=== PATIENT | female | born 1950 | race Caucasian/White ===

== ENCOUNTER 2025-01-14 05:08 | Emergency (ER) | payer MEDICARE, BC, SELFPAY ==
[2025-01-14 05:12] VITALS: BP 122/85; PULSE 74; RESP 18; TEMP 36.9; O2SAT 96; BMI 39.4
--- NOTE | 2025-01-14 05:33 | ED.GENADULT ---
HPI - General Adult General Chief complaint: Nausea/Vomiting Stated complaint: Ill Time Seen by Provider: 01/14/25 05:09 Source: patient and EMS Mode of arrival: EMS Limitations: no limitations History of Present Illness HPI narrative: 74-year-old female presents to the emergency department after calling 911 because she felt hot and nauseated suddenly upon awakening. No neurological changes, no chest pain, no shortness of breath. No fever. Had been eating and drinking normally through the day. Did not try taking any Tylenol or ibuprofen to help with her symptoms. No abdominal pain. No extremity pain, no myalgias. Currently asymptomatic besides the nausea. No vomiting. No recent bloody stools. No dysuria, no recent medication changes. Does have a prior history of TIA and is anticoagulated on Coumadin. No bleeding, no falls or trauma. No recent sick contacts or pertinent travel. Denies alcohol intake. Past medical history per patient is notable for anxiety disorder, chronic insomnia, history of TIA. Home meds are reviewed, denies any recent changes. No narcotics. Does have several mood medications and sedatives on her list. Nonsmoker. Denies recent surgery. Abdominal surgical history is notable for prior hysterectomy and appendectomy. Denies others. ROS is notable for the generalized abdominal symptoms only, otherwise denies times 12 systems. Related Data Home Medications ?Medication ?Instructions ?Recorded ?Confirmed atorvastatin 40 mg tablet 40 mg PO DAILY 01/14/25 01/14/25 buprenorphine 2 mg-naloxone 0.5 mg 1 tab sublingual TID 01/14/25 01/14/25 sublingual tablet citalopram 40 mg tablet 40 mg PO DAILY 01/14/25 01/14/25 levothyroxine 150 mcg tablet 150 mcg PO DAILY 01/14/25 01/14/25 oxycodone 5 mg tablet 5 mg PO TID 01/14/25 01/14/25 trazodone 50 mg tablet 50 mg PO QPM 01/14/25 01/14/25 warfarin 5 mg tablet 5 mg PO DIRECTED 01/14/25 01/14/25 Allergies Allergy/AdvReac Type Severity Reaction Status Date / Time No Known Drug Allergies Allergy Verified 01/14/25 05:15 [facility] Medical History (Updated 01/14/25 @ 06:42 by Yisel Talbert MD) Pain management contract agreement ?Z02.89 - Encounter for other administrative examinations (ICD-10) Anticoagulation monitoring, INR range 2-3 ?Z79.01 - senior care (current) use of anticoagulants (ICD-10) PFO (patent foramen ovale) ?Q21.12 - Patent foramen ovale (ICD-10) Ischemic embolic stroke ?I63.9 - Cerebral infarction, unspecified (ICD-10) Presbyopia ?H52.4 - Presbyopia (ICD-10) Pseudophakia ?Z96.1 - Presence of intraocular lens (ICD-10) Morbid obesity ?E66.01 - Morbid (severe) obesity due to excess calories (ICD-10) CKD (chronic kidney disease) ?N18.9 - Chronic kidney disease, unspecified (ICD-10) Acquired hypothyroidism ?E03.9 - Hypothyroidism, unspecified (ICD-10) Major psychotic depression, recurrent ?F33.3 - Major depressive disorder, recurrent, severe with psychotic symptoms (ICD-10) Surgical History (Updated 01/14/25 @ 06:05 by Edvin Farley RN) S/P TEQUILA (total abdominal hysterectomy) ?Z90.710 - Acquired absence of both cervix and uterus (ICD-10) S/P lumbar spinal fusion ?Z98.1 - Arthrodesis status (ICD-10) History of cholecystectomy ?Z90.49 - Acquired absence of other specified parts of digestive tract (ICD-10) H/O colonoscopy ?Z98.890 - Other specified postprocedural states (ICD-10) Cataract extraction status of eye ?Z98.49 - Cataract extraction status, unspecified eye (ICD-10) H/O arthroplasty ?Z96.60 - Presence of unspecified orthopedic joint implant (ICD-10) History of appendectomy ?Z90.49 - Acquired absence of other specified parts of digestive tract (ICD-10) Social History Smoking Status: Former smoker Second hand tobacco smoke exposure: No How often do you have a drink containing alcohol: never AUDIT-C Alcohol total score: 0 Non-prescribed substance use: denies use Exam Const: Vital Signs, click to edit/add: Vital Signs - 24 hr 01/14/25 05:12 01/14/25 06:06 Temperature 98.5 F Pulse Rate [Right Pulse Oximeter] 74 Respiratory Rate 18 Blood Pressure [Ri ght Upper Arm] 122/85 Pulse Oximetry 96 96 Oxygen Delivery Me thod Room Air Documenting provider has reviewed patient's vital signs: yes Common normals: alert Other: Moderate historian. Difficulty staying on task with question answering. Appears well nourished and well hydrated. HENMT: Common normals: normocephalic, moist oral mucous membranes and oropharynx normal Head and scalp: normocephalic Mouth: oral and palatal mucosa normal Throat: posterior oropharynx normal Eye: Common normals: conjunctivae normal General eye: normal appearance of both eyes Conjunctiva: conjunctiva(e) normal Neck & C-Spine: Common normals: full ROM and no lymphadenopathy General: normal visual inspection Resp: Common normals: normal respiratory effort and no use of accessory muscles Effort & inspection: able to speak in complete sentences Cardio: Common normals: regular rate, regular rhythm, S1 normal heart sound, S2 normal heart sound and no murmurs Rate: regular rate Rhythm: regular rhythm Heart sounds: S1 normal and S2 normal GI: Common normals: Normal to inspection, nondistended, normoactive bowel sounds present, soft to palpation, no hepatosplenomegaly and no masses Palpation: soft and no hepatosplenomegaly Other: Mild tenderness to epigastric region and right upper quadrant only. Right upper quadrant pain was not reproducible. Certainly no rebound tenderness or guarding : Common normals: no CVA tenderness Bladder/kidney exam: no CVA tenderness Back & Pelvis: Common normals: no CVA tenderness Extremity: Common normals: normal capillary refill Neuro: Common normals: moves all extremities and no focal motor deficits Sensorium/orientation: alert Speech: speech normal Other: Pulse self up from supine to sitting quickly without difficulty. Psych: Appearance: grossly normal Activity/motor behavior: appropriate eye contact Insight: fair Judgement: fair Skin: Common normals: no rashes or lesions noted General skin exam: no rashes or lesions noted Course Course ED Course: 74-year-old female with nausea and a hot flash. No signs of obvious sepsis, tachycardia, hypotension. She is has no vomiting or focal exam findings that her overly worrisome. Recommended viral swabs, baseline labs. Will withhold any imaging unless labs are suspicious. Bolus 1/2 L of normal saline and 4 mg of Zofran. Await findings. Reevaluation(s) Time of Reevaluation #1: 06:43 Reevaluation #1: Reviewed findings with patient, labs are very reassuring. She is feeling better after the Zofran and fluids. She disclosed to the nurses but denies to me that she has been taking both oxycodone and her Suboxone and it sounds as though she has been tapered down on the oxycodone and potentially missed some doses of her Suboxone. I do question narcotic withdrawal as the source of her symptoms seeing as her INR is also low. Patient denies that this could be a factor in front of her family that has freshly arrived. Overall, things look good and I have no indications to keep her in the ED or pursue more advanced imaging. I reiterated to the patient the importance of taking her medications as prescribed and she nods in agreement. I offered some Zofran to have at home and she says that she has a good supply at home and should not need more. I tell her that this sounds reasonable. Let her know that if she has identical episodes to this in the future, it is okay to try Tylenol and Zofran and see if symptoms improve within an hour. She verbalizes understanding and agreement. Written instructions provided, all questions answered. Vital Signs Vital signs: Initial Vital Signs Temperature 98.5 F 01/14/25 05:12 Temperature Source Temporal Artery Scan 01/14/25 05:12 Pulse Rate 74 01/14/25 05:12 Respiratory Rate 18 01/14/25 05:12 Blood Pressure 122/85 01/14/25 05:12 Blood Pressure Mean 97 01/14/25 05:12 Blood Pressure Position Sitting 01/14/25 05:12 Pulse Oximetry 96 01/14/25 05:12 Oxygen Delivery Method Room Air 01/14/25 05:12 Vital Signs Temperature 98.5 F 01/14/25 05:12 Pulse Rate 74 01/14/25 05:12 Respiratory Rate 18 01/14/25 05:12 Blood Pressure 122/85 01/14/25 05:12 Pulse Oximetry 96 01/14/25 05:12 Oxygen Delivery Method Room Air 01/14/25 05:12 Temperature 98.5 F 01/14/25 05:12 Pulse Rate 74 01/14/25 05:12 Respiratory Rate 18 01/14/25 05:12 Blood Pressure 122/85 01/14/25 05:12 Pulse Oximetry 96 01/14/25 06:06 Oxygen Delivery Method Room Air 01/14/25 05:12 Medications Administered Medications: Discontinued Medications Generic Name Dose Route Start Last Admin Trade Name Yash PRN Reason Stop Dose Admin Sodium Chloride 500 mls @ 500 mls/hr 01/14/25 05:28 01/14/25 06:39 0.9 % Sodium Chloride 500 Ml IV 01/14/25 06:27 Infused .Q1H ONE Infusion Ondansetron HCl 4 mg 01/14/25 05:28 01/14/25 05:50 Ondansetron 2 Mg/Ml Inj IVP 01/14/25 05:29 4 mg ONCE ONE Administration Medical Decision Making Lab Data Lab results reviewed: Yes I reviewed the patient's lab results Lab results narrative: No signs of infection. Hemoglobin stable. INR subtherapeutic which does make me think that she is not taking her medications appropriately. Electrolytes and kidney function appropriate. Negative viral studies. Overall reassuring. Labs: Lab Results 01/14/25 01/14/25 Range/Units 05:24 05:40 WBC 5.38 (4.50-11.00) K/uL RBC 4.19 (4.00-5.20) m/uL Hgb 11.8 L (12.0-16.0) gm/dL Hct 37.2 (33.0-51.0) % MCV 89 (80-100) fL MCH 28 (26-34) pg MCHC 32 (32-36) gm/dL RDW Coeff of Nigel 15.6 H (11.5-15.5) % Plt Count 154 (140-440) K/uL Neut % (Auto) 73.9 H (42.0-72.0) % Lymph % (Auto) 15.4 L (20-44) % Sampson % (Auto) 7.8 (0.0-11.0) % Eos % (Auto) 2.0 (0.0-7.0) % Baso % (Auto) 0.7 (0.0-3.0) % Neut # (Auto) 4.00 (1.7-7.0) K/uL Lymph # (Auto) 0.80 L (0.90-2.90) K/uL Sampson # (Auto) 0.40 (0.00-0.90) K/UL Eos # (Auto) 0.11 (0.00-0.50) K/uL Baso # (Auto) 0.04 (0.00-0.30) K/uL Abs Immat Gran (auto) 0.01 (0.00-0.30) K/uL Imm/Tot Granulo (auto) 0.2 % INR 1.40 H (0.91-1.10) Sodium 138 (135-149) mmol/L Potassium 3.7 (3.6-5.1) mmol/L Chloride 106 (96-114) mmol/L Carbon Dioxide 27 (20-32) mmol/L Anion Gap 5 L (7-15) mEq/L BUN 18 (7-30) mg/dL Creatinine 0.9 (0.5-1.5) mg/dL Estimated Creat Clear 40.21 Estimated GFR 67 ml/min Glucose 93 (60-115) mg/dL Lactate 1.1 (0.5-1.9) mmol/L Calcium 9.4 (8.4-10.6) mg/dL Total Bilirubin 0.6 (0.1-1.5) mg/dL AST 20 (12-35) U/L ALT 12 (4-35) U/L Alkaline Phosphatase 97 (40-150) U/L C-Reactive Protein 0.5 (0.5-1.0) mg/dL Total Protein 6.5 (6.0-8.3) g/dL Albumin 3.7 (3.3-5.0) g/dL Lipase 44 (23-300) U/L SARS-CoV-2 (PCR) Negative SARS-CoV-2 (Negative) Influenza Type A (PCR) Negative PCR FLU A (Negative) Influenza Type B (PCR) Negative PCR FLU B (Negative) RSV (PCR) Negative PCR RSV (Negative) POC Troponin I 0.01 (0.01-0.04) ng/ml Discharge Plan Discharge Clinical Impression: Nausea Patient Disposition: Home w/ Parent or Adult Condition: Improved Instructions: Acute Nausea and Vomiting (DC) Additional Instructions: I am glad that you are feeling better after the anti nausea medicine and fluid. Thankfully the labs do not show anything serious. No signs of dehydration, infection, pancreatitis, liver problems, obstruction, influenza. I suspect that you likely have a viral gastroenteritis, also known as a stomach flu. Would recommend that you use your Zofran up to every 6 hours as needed for nausea and discomfort. It is okay to use Tylenol 1000 mg every 6 hours as needed also to help with body aches, fatigue and general malaise. Symptoms tend to last for 3-5 days. He should follow up with primary care provider if your not improving in 5 days. Drink lots of fluids and make sure that your getting out of bed at least 4 times a day for at least 20 minutes even when you are feeling ill. This will dramatically reduce her chance of complications. Note that going from simply from the bed to a chair does not count. If you have high fever, persistent vomiting for more than 24 hours, bloody stools or other signs of severe complication, you should come to an emergency department. If you have similar events to this in the future, I would recommend that you take a 1000 mg of Tylenol and your Zofran and give things about an hour and see if they improve. Your INR was low at 1.4, please make a point to take this properly and follow up with your INR management team in a few days for a recheck. Missing doses of your pain medicines would cause similar symptoms as well, consider if this may be a factor for you as well. Activity Level: Activity as Tolerated Discharge Diet: Regular Prescriptions: No Action atorvastatin 40 mg tablet 40 mg PO DAILY buprenorphine-naloxone 2-0.5 mg tablet, sublingual 1 tab sublingual TID citalopram 40 mg tablet 40 mg PO DAILY levothyroxine 150 mcg tablet 150 mcg PO DAILY oxycodone 5 mg tablet 5 mg PO TID trazodone 50 mg tablet 50 mg PO QPM warfarin 5 mg tablet 5 mg PO DIRECTED Follow Up/Referrals: Provider,Not a Local [Primary Care Provider] - Stand Alone Forms: [facility] Info Instructions
[2025-01-14 05:47] LABS: Basophils Absolute Auto 0.04 K/uL (0.00-0.30); Basophils Percent Auto 0.7 % (0.0-3.0); Eosinophils Absolute Auto 0.11 K/uL (0.00-0.50); Hematocrit 37.2 % (33.0-51.0); Hemoglobin* 11.8 gm/dL (12.0-16.0); Immature Granulocytes Abs Auto 0.01 K/uL (0.00-0.30); Immature Granulocytes Pct Auto 0.2 %; Lymphocytes Percent Auto 15.4 % (20-44); Mean Corpuscular HGB Conc 32 gm/dL (32-36); Mean Corpuscular Hemoglobin 28 pg (26-34); Mean Corpuscular Volume 89 fL (80-100); Monocytes Percent Auto 7.8 % (0.0-11.0); Neutrophils Percent Auto 73.9 % (42.0-72.0); Platelet Count* 154 K/uL (140-440); RDW Coefficient of Variation % 15.6 % (11.5-15.5); Red Blood Count 4.19 m/uL (4.00-5.20); White Blood Count* 5.38 K/uL (4.50-11.00)
[2025-01-14] MEDS: 0.9 % SODIUM CHLORIDE 500 ML 500 ML IV (05:50)
[2025-01-14] MEDS: ONDANSETRON 2 MG/ML inj 4 MG IVP (05:50)
[2025-01-14 05:52] LABS: Slide Review Reflex No
[2025-01-14 05:54] LABS: PCR FLU A Negative PCR FLU A (Negative); PCR FLU B Negative PCR FLU B (Negative); PCR RSV Negative PCR RSV (Negative); SARS PCR* Negative SARS-CoV-2 (Negative)
[2025-01-14 06:04] LABS: Albumin* 3.7 g/dL (3.3-5.0); Chloride* 106 mmol/L (96-114)
[2025-01-14 06:05] LABS: Potassium* 3.7 mmol/L (3.6-5.1); Sodium* 138 mmol/L (135-149)
[2025-01-14 06:06] VITALS: O2SAT 96
[2025-01-14 06:06] LABS: Prothrombin Time 18.1 Seconds
[2025-01-14 06:07] LABS: Bilirubin Total* 0.6 mg/dL (0.1-1.5); Blood Urea Nitrogen* 18 mg/dL (7-30); Creatinine* 0.9 mg/dL (0.5-1.5); Est. Creatinine Clearance* 40.21; Estimated Glomerular Filt Rate 67 ml/min
[2025-01-14 06:08] LABS: Alanine Aminotransferase* 12 U/L (4-35); Alkaline Phosphatase* 97 U/L (40-150); Anion Gap 5 mEq/L (7-15); Aspartate Amino Transferase* 20 U/L (12-35); Calcium* 9.4 mg/dL (8.4-10.6); Carbon Dioxide* 27 mmol/L (20-32); Glucose* 93 mg/dL (60-115); Lipase* 44 U/L (23-300); Total Protein* 6.5 g/dL (6.0-8.3)
[2025-01-14 06:11] LABS: C Reactive Protein* 0.5 mg/dL (0.5-1.0)
--- OUTSIDE RECORDS SUMMARY | 2025-01-14 06:15 | XMS_ITS | Encounter Summary ---
Author Organization [facility] Address [address] [place] [address] Care Team Providers Care Electronics Recycler Name Role Phone Elsewhere, Pcp Primary Care Provider Unavailabl e Encounter Details Date Type Department Care Team (Latest Contact Info) Description 12/10/2024 10:42 AM OVEN UNLOADER - 12/10/2024 11:59 PM OVEN UNLOADER Hospital Encounter Department of Laboratory Medicine in [address] [phone] Noemy Ko M.D. 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 No 08/09/2022 Within the last year, have y ou been humiliated or emotionally abused in other ways by your partner or ex-partner? No Within the last year, have y ou been kicked, hit, slapped, or otherwise physically hurt by your partner or ex-partner? No 08/09/2022 Within the last year, have y ou been raped or forced to have any kind of sexual activity by your partner or ex-partner? No 08/09/2022 Social Connection and Isolat ion Panel [NHANES] Answer Date Recorded In a typical week, how many times do you talk on the phone with family, friends, or neighbors? More than three times a week 08/09/2022 How often do you get togethe r with friends or relatives? More than three times a week 08/09/2022 How often do you attend chur or zoroastrian services? Never 08/09/2022 Do you belong to any clubs o r organizations such as hoahaoism groups, unions, fraternal or athletic groups, or school groups? No 08/09/2022 How often do you attend meet ings of the clubs or organizations you belong to? Never 08/09/2022 Are you , , di vorced, , never , or living with a partner? 08/09/2022 AUDIT-C Answer Date Recorded Q1: How often do you have a drink containing alc ohol? 2-4 times a month 08/09/2022 Q2: How many drinks containi ng alcohol do you have on a typical day when you are drinking? 3 or 4 08/09/2022 Q3: How often do you have si x or more drinks on one occasion? Never 08/09/2022 Overall Financial Resource Strain (CARDIA) Answe r Date Recorded How hard is it for you to pa y for the very basics like food, housing, medical care, and heating? Not very hard 09/21/2023 PHQ-2 Answer Date Recorded PHQ-2 Score 4 11/28/2022 [facility] - Occupational Stress Questionnaire Answer Date Recorded Do you feel stress - tense, restless, nervous, or anxious, or unable to sleep at night because your mind is troubled all the time - these days? To some extent 08/09/2022 Exercise Vital Sign Answer Date Recorde d On average, how many days pe r week do you engage in moderate to strenuous exercise (like a brisk walk)? 0 days 09/21/2023 On average, how many minutes do you engage in exercise at this level? 0 min 09/21/2023 Hunger Vital Sign Answer Date Recorded Within the past 12 months, y ou worried that your food would run out before you got the money to buy more. Never true 09/21/20 23 Within the past 12 months, t he food you bought just didn't last and you didn't have money to get more. Never true 09/21/2023 PRAPARE - Transportation Answer Date Re corded In the past 12 months, has l ack of transportation kept you from medical appointments or from getting medications? No 08/30 In the past 12 months, has l ack of transportation kept you from meetings, work, or from getting things needed for daily living? No 09/21/2023 Depression Answer Date Recor ded PHQ-9 Total Score (max 27) 8 11/28 Nutrition Answer Date Recorded On average, how many serving s of fruits and vegetables do you eat per day (serving size is equal to 1 cup or approximately the size of a tennis ball)? 0-2 09/21/2023 Dental Answer Date Recorded Dental: Regular Dentist No 08/09/20 Employment Answer Date Recorded Employment status Retired 09/21/2023 Housing Stability Answer Date Recorded What is your living situation today? I have a [facility] place to live 09/21/2023 Education Answer Date Recorded What is the highest level of school you have completed or the highest degree you have received? Associate degree: academic program 08/09/2022 Comments Unknown Sex and Gender Information Value Date Recorded Sex Assigned at Female 08/09/2022 10:14 AM CDT Legal Sex Female 7:02 PM OVEN UNLOADER Gender Identity Female 08/09/2022 10:14 AM CDT Sexual Orientation Straight 08/09/2022 10 :14 AM CDT documented as of this encounter Medications at Time of Discharge acetaminophen (TYLENOL) 325 mg tablet Take 2 tablets (650 mg total) by mouth every 4 (four) hours as needed for pain. 100 tablet 4 acetaminophen (TYLENOL) 500 mg tabletIndications:b ack pain Take 1,000 mg by mouth every 6 (six) hours as needed for pain Indications: backache. artificial tear,gseln-fmc-szi, (GENTEAL TEARS) 0.1-0.3-0.2 % drops ophthalmic solution Administer 1 drop into both eyes 4 (four) times a day as needed (dry eyes). 4 atorvastatin (Lipitor) 40 mg tablet Take 1 tablet (40 mg total) by mouth daily with dinner. 90 tablet 3 01/01/2025 1:05 PM OVEN UNLOADER 4 buprenorphine-nalox one (Suboxone) 2-0.5 mg per SL tablet Place 0.5 tablets under the tongue 2 (two) times a day. May increase to 3 (three) times a day if tolerated. 36 tablet 11/19/2024 2:08 PM OVEN UNLOADER 5 buprenorphine-nalox one (Suboxone) 2-0.5 mg per SL tablet Take one tablet sublingually 3 (three) times daily, dosing every 8 hours for chronic pain 84 tablet 12/26/2024 4:13 PM OVEN UNLOADER 5 citalopram (CeleXA) 40 mg tablet Take 1 Tablet (40 mg) by mouth once daily. 90 tablet 1 01/01/2025 1:05 PM OVEN UNLOADER 4 diclofenac sodium (VOLTAREN) 1 % gel Apply 4 g topically 4 (four) times a day. 4 enoxaparin (LOVENOX) 80 mg/0.8 mL injection Inject 0.8 mL (80 mg total) under the skin 2 (two) times a day. 4 mL 3 4 fluticasone propionate (CUTIVATE) 0.005 % ointment Apply 1 Application topically 2 (two) times a day as needed (to ears as directed). 3 fluticasone propionate (CUTIVATE) 0.005 % ointment Apply topically 2 (two) times a day NEEDED (to external ears). 60 g 11/02/2023 1:05 PM OVEN UNLOADER 3 gabapentin (NEURONTIN) 100 mg capsule Take 100 mg by mouth 2 (two) times a day. 4 HYDROmorphone (DILAUDID) 2 mg tablet Take 2 tablets by mouth every 4 (four) hours as needed for severe pain or score 7-10 of 10. 4 hydrOXYzine (VistariL) 25 mg capsule Take 1 capsule (25 mg total) by mouth 2 (two) times a day if needed for pain. 60 capsule 07/29/2024 11:12 AM CDT 4 ketotifen (ZADITOR) 0.025 % (0.035 %) ophthalmic solution Administer 1 drop into both eyes 2 (two) times a day. For itching 4 levothyroxine 150 mcg tablet Take 1 tablet (150 mcg total) by mouth daily before breakfast. 90 tablet 1 01/01/2025 1:05 PM OVEN UNLOADER 4 methocarbamoL (ROBAXIN) 500 mg tablet Take 1,000 mg by mouth 3 (three) times a day as needed for muscle spasms. 4 methylPREDNISolone (MedroL DosePak) 4 mg tablet Take 6 tablets by mouth morning of day 1, then take 5 tablets together on day 2, and complete like this until gone. 21 tablet 06/20/2024 2:24 PM CDT 4 mupirocin (BACTROBAN) 2 % ointment Use starting 5 days prior to surgery. Apply two times daily to the inside of the nose. 22 g 02/28/2024 3:16 PM CDT 4 naloxone (NARCAN) 4 mg/actuation nasal spray Administer one spray into one nostril as needed for opiod overdose. Repeat in other nostril after 2-3 minutes if no or minimal response. 2 each 4 naloxone (Narcan) 4 mg/actuation nasal spray Use as directed as needed for accidental overdose, then call 911. 2 each 1 5 ondansetron ODT (Zofran-ODT) [address] 1 Tablet (4 mg) on the tongue every 8 hours if needed for Nausea/Vomiting. 30 tablet 1 01/06/2025 4:56 PM CDT 4 oxyCODONE (Roxicodone) 10 mg IR tablet Take 1 tablet (10 mg total) by mouth 3 (three) times a day as needed for severe breakthrough pain or score 7-10 of 10. Avoid taking within 1-2 hours of buprenorphine. Take buprenorphine first. 30 tablet 12/03/2024 2:20 PM OVEN UNLOADER 5 oxyCODONE (Roxicodone) 10 mg IR tablet Take 1 tablet (10 mg total) by mouth 3 (three) times a day as needed for severe breakthrough pain or score 7-10 of 10.Avoid taking within 1-2 hours of buprenorphine. Take buprenorphine first. 42 tablet 11/19/2024 2:08 PM OVEN UNLOADER 5 oxyCODONE (Roxicodone) 10 mg IR tablet Take 1 (one) tablet by mouth 3 (three) times daily as needed for severe breakthrough pain rated 7-10/10. Avoid taking within 1-2 hours of buprenorphine. Take buprenorphine first. 45 tablet 12/12/2024 3:43 PM OVEN UNLOADER 5 oxyCODONE (Roxicodone) 10 mg IR tablet Take 1 tablet by mouth 3 (three) times daily as needed for severe breakthrough pain rated 7-10/10. Avoid taking within 1-2 hours of buprenorphine. Take buprenorphine first. 45 tablet 12/26/2024 4:13 PM OVEN UNLOADER 5 polyethylene glycol (MIRALAX) 17 gram/dose oral powder Take 17 g by mouth daily. 4 sennosides-docusate sodium (Senna-S) 8.6-50 mg per tablet Take 1 tablet by mouth 2 (two) times a day. 4 sennosides-docusate sodium (SENOKOT-S) 8.6-50 mg per tablet Take 2 tablets by mouth 2 (two) times a day. 4 traMADoL (Ultram) 50 mg tablet Take 1 tablet (50 mg total) by mouth every 8 (eight) hours as needed. 20 tablet 07/15/2024 11:35 AM CDT 4 traZODone (DESYREL) 50 mg tablet Take 1 tablet (50 mg total) by mouth at bedtime. 30 tablet 4 traZODone (DesyreL) 50 mg tablet Take 1 tablet (50 mg total) by mouth at bedtime. 90 tablet 3 11/14/2024 11:07 AM OVEN UNLOADER 4 warfarin (JANTOVEN) 5 mg tablet Take 5 mg by mouth. Take 5 mg by mouth daily Coumadin 5 mg Sunday and 7.5 mg on Sunday. Next INR 6/3 to be drawn by home service director and results to PCP. warfarin (Jantoven) 5 mg tablet Take by mouth 10 mg (5 mg x 2) every Sun, Sun; 7.5 mg (5 mg x 1.5) all other days in the evening OR as directed 150 tablet 09/05/2024 12:21 PM OVEN UNLOADER 4 oxyCODONE (Roxicodone) 5 mg immediate release tablet Take 1 Tablet (5 mg) by mouth three times daily. 15 tablet 11/14/2024 11:07 AM OVEN UNLOADER 5 01/08/20 25 documented as of this encounter Plan of Treatment Upcoming Encounters Date Type Department Care Team (Late st Contact Info) Description 01/15/2025 10:30 AM CDT Clinical Support Department of Rehabilitation Services in [address] [phone] Emanuel Garcia M.D. [address] [place] [phone] Penny Hollingsworth P.T., D.P.T. 01/20/2025 10:30 AM CDT Clinical Support Department of Rehabilitation Services in [address] [phone] Emanuel Garcia M.D. [address] [place] [phone] Jessie Banegas P.T., D.P.T. [address] [place] [phone] 01/22/2025 10:30 AM CDT Clinical Support Department of Rehabilitation Services in [address] [phone] Emanuel Garcia M.D. [address] [place] [phone] Penny Hollingsworth P.T., D.P.T. 01/27/2025 10:30 AM CDT Clinical Support Department of Rehabilitation Services in [address] [place] [address] Emanuel Garcia M.D. [address] [place] [phone] Jessie Banegas P.T., D.P.T. [address] [place] [phone] 01/29/2025 10:30 AM CDT Clinical Support Department of Rehabilitation Services in [address] [phone] Emanuel Garcia M.D. [address] [place] [phone] Penny Hollingsworth P.T., D.P.T. 02/03/2025 10:30 AM CDT Clinical Support Department of Rehabilitation Services in [address] [address] Emanuel Garcia M.D. [address] [place] [phone] Jessie Banegas P.T., D.P.T. [address] [place] [phone] 02/05/2025 10:30 AM CDT Clinical Support Department of Rehabilitation Services in [address] [address] Emanuel Garcia M.D. [address] [place] [phone] Penny Hollingsworth P.T., D.P.T. 02/10/2025 10:30 AM CDT Clinical Support Department of Rehabilitation Services in [address] [phone] Emanuel Garcia M.D. [address] [place] [phone] Jessie Banegas P.T., D.P.T. [address] [place] [phone] 02/12/2025 10:30 AM CDT Clinical Support Department of Rehabilitation Services in [address] [phone] Emanuel Garcia M.D. [address] [place] [phone] Penny Hollingsworth P.T., D.P.T. documented as of this encounter Procedures Procedure Name Priority Date/Time Associated Diagnosis Comments PROTHROMBIN TIME (PT), P Routine 12/10/2024 11:03 AM OVEN UNLOADER Hypothyroidism Acquired [facility] (Current) Anticoagulant Treatment Antiphospholipid Antibody Syndrome (HCC) Stroke (HCC) Patent Foramen Ovale (HCC) documented in this encounter Results * (ABNORMAL) Prothrombin Time (PT) (12/10/2024 11:03 AM OVEN UNLOADER) Prothrombin Time, P 16.9(H) 9.4 - 12.5 sec 12/10/2024 11:17 AM OVEN UNLOADER CNFL INR 1.5 0.9 - 1.1 12/10/2024 11:17 AM OVEN UNLOADER CNFL Comment: ----ADDITIONAL INFORMATION---- Standard intensity warfarin therapeutic range: 2.0 to 3.0 High intensity warfarin therapeutic range: 2.5 to 3.5 Blood (Blood, Venous) 12/10/2024 11:03 AM OVEN UNLOADER 12/10/2024 11:04 AM OVEN UNLOADER us Noemy Ko M.D. 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
--- OUTSIDE RECORDS SUMMARY | 2025-01-14 06:15 | XMS_ITS | Encounter Summary ---
Author Organization [facility] Address [address] [place] [address] Care Team Providers Care Director Medical Name Role Phone Elsewhere, Pcp Primary Care Provider Unavailabl e Reason for Visit * Physical Therapy (Routine) - Authorized Specialty Diagnoses / Procedures Referred By Shell t Referred To Contact Diagnoses Pain Low Back Unspecified Procedures PT Ongoing treatment Emanuel Garcia M.D. [address] [place] [address] Phone: tel: fax: [facility] Region Referral ID Status Reason Start Date Expiration Date V isits Requested Visits Authorized [id number] Authorized 10/02/2024 10/02/2025 99 [phone] Encounter Details Date Type Department Care Team (Late st Contact Info) Description 01/01/2025 1:15 PM ELECTRONICS WORKER Clinical Support Department of Rehabilitation Services in [address] [phone] Emanuel Garcia M.D. [address] [place] [phone] Penny Hollingsworth PAkbarT., D.P.T. Pain Low Back Unspecified Social History Tobacco Use Types Packs/Day Years [...] week 08/09/2022 How often do you attend [facility] or uatsdin services? Never 08/09/2022 Do you belong to any clubs o r organizations such as methodist groups, unions, fraternal or athletic groups, or [...] Answer Date Recorded PHQ-2 Score 4 11/28/2022 [facility] - [...] your living situation today? [facility] 09/21/2023 Education Answer Date Recorded What is the highest level of school you have completed or the highest degree you have received? Associate degree: academic program 08/09/2022 Comments Unknown Sex and Gender Information Value Date Recorded Sex Assigned at Female 08/09/2022 10:14 AM CDT Legal Sex Female 7:02 PM ELECTRONICS WORKER Gender Identity Female 08/09/2022 10:14 AM CDT Sexual Orientation Straight 08/09/2022 10 :14 AM CDT documented as of this encounter Progress Notes * Penny Hollingsworth, P.T., D.P.T. - 01/01/2025 1:15 PM CST Physical Therapy Outpatient Treatment Note SUBJECTIVE Patient's Name: Margie Younger Referring Provider: Emanuel Garcia M.D. Visit Diagnosis: 1. Pain Low Back Unspecified Payor: MEDICARE / Plan: MEDICARE A AND B / Product Type: Medicare / No data recorded Epic Visit Count: 23 Patient comments: Patient complains of L knee pain. She reports that she needs to get it replaced but is fearful. She is also impacted by vertigo, but does [facility] looked at OBJECTIVE Pain: No new complaint TREATMENT Treatment today consisted of: Therapeutic Exercise: -Sci-Fit Total body ergometer at level 3 resistance times 15 minutes. -Standing tall marching on foam for some balance and strength exercises 2x15 reps -Standing hip abduction bilaterally 2x10 -Seated LAQ with 6# weight 2x10 -Seated march with 6# weight 2x10 Neuromuscular re-education: -NBOS trunk rotations laterally x10 each -NBOS on foam with trunk rotations 2x10 Assessment Clinical Impression: Patient reports that she has made progress since initially starting therapy inregards to her back pain. In recent weeks, she has been limited by L knee pain and vertigo. She tolerated today's session well. Patient will continue to benefit from skilled physical therapy to improve strength and endurance. Functional Goals and Timeframes: PT Goal #1: Patient will improve bilateral LE strength to 4/5 in order to progress toward PLOF and improve overall gait mechanics PT Goal #1 to be achieved by: 01/30/25 PT Goal #1 Status: Progressing PT Goal #2: Patient will report less than 3/10 pain in low back and RLE in order to improve functional independence with gas flow regulator and activities PT Goal #2 to be achieved by: 01/30/25 PT Goal #2 Status: Progressing PT Goal #3: Patient will be able to tolerate 45 minutes of consistent physical activity without rest breaks in order to progress toward PLOF and improve ability to functional independently in the community PT Goal #3 to be achieved by: 01/30/25 PT Goal #3 Status: Achieved PT Goal #4: Patient will be compliant and independent with home exercise program in order to progress toward PLOF PT Goal #4 Status: Achieved Plan Plan for next session: Strengthening, stabilization and endurance building. Time Spent with Patient Therapeutic Interventions Neuromuscular Re-Education (min): 10 min Therapeutic Exercise (min): 35 min Time Tracking Total Timed Units (min): 45 min Total Treatment Time (min): 45 min TRONICS WORKER documented in this encounter Plan of Treatment Upcoming Encounters Date Type Department Care Team (Late st Contact Info) Description 01/15/2025 10:30 AM CDT Clinical Support Department of Rehabilitation Services in [address] [phone] Emanuel Garcia M.D. [address] [place] [phone] Penny Hollingsworth P.T., D.P.T. 01/20/2025 10:30 AM CDT Clinical Support Department of Rehabilitation Services in [address] [phone] Emanuel Garcia M.D. [address] [place] [phone] Jessie Banegas P.T., D.P.T. [address] [place] [phone] 01/22/2025 10:30 AM CDT Clinical Support Department of Rehabilitation Services in [address] [address] Emanuel Garcia M.D. [address] [place] [phone] Penny Hollingsworth P.T., D.P.T. 01/27/2025 10:30 AM CDT Clinical Support Department of Rehabilitation Services in [address] [place] [address] Emanuel Garcia M.D. [address] [place] [phone] Jessie Banegas P.T., D.P.T. [address] [place] [phone] 01/29/2025 10:30 AM CDT Clinical Support Department of Rehabilitation Services in [address] [phone] Emanuel Garcia M.D. [address] [place] [phone] Penny Hollingsworth P.T., D.P.TAkbar 02/03/2025 10:30 AM CDT Clinical Support Department of Rehabilitation Services in [address] [phone] Emanuel Garcia M.D. [address] [place] [phone] Jessie Banegas P.T., D.P.T. [address] [place] [phone] 02/05/2025 10:30 AM CDT Clinical Support Department of Rehabilitation Services in [address] [phone] Emanuel Garcia M.D. [address] [place] [phone] Penny Hollingsworth P.T., D.P.T. 02/10/2025 10:30 AM CDT Clinical Support Department of Rehabilitation Services in [address] [address] Emanuel Garcia M.D. [address] [place] [phone] Jessie Banegas P.T., D.P.T. [address] [place] [phone] 02/12/2025 10:30 AM CDT Clinical Support Department of Rehabilitation Services in [address] [phone] Emanuel Garcia M.D. [address] [place] [phone] Penny Hollingsworth P.T., D.P.T. documented as of this encounter Visit Diagnoses Diagnosis Pain Low Back Unspecified documented in this encounter Additional Health Concerns Assessment Noted Time PHQ-9 Depression Total Score: 8 11/28/19 23 7:25 PM ELECTRONICS WORKER documented as of this encounter Care Teams Director Medical Relationship Specialty Start Date End Date Elsewhere, Pcp PCP - General Internal Medicine 12/12/22 documented as of this encounter
--- OUTSIDE RECORDS SUMMARY | 2025-01-14 06:15 | XMS_ITS | Encounter Summary ---
Author Organization [facility] Address [address] [place] [address] Care Team Providers Care Supervisor Metal Hanging Name Role Phone Elsewhere, Pcp Primary Care Provider Unavailabl e Reason for Visit * Physical Therapy (Routine) - Authorized Specialty Diagnoses / Procedures Referred By Shell t Referred To Contact Diagnoses Pain Low Back Unspecified Procedures PT Ongoing treatment Emanuel Garcia M.D. [address] [place] [address] Phone: tel: fax: [facility] Region Referral ID Status Reason Start Date Expiration Date V isits Requested Visits Authorized [id number] Authorized 10/02/2024 10/02/2025 99 [phone] Encounter Details Date Type Department Care Team (Latest Contact Info) Description 12/16/2024 10:30 AM FIRER DIESEL LOCOMOTIVE Clinical Support Department of Rehabilitation Services in [address] [phone] Emanuel Garcia M.D. [address] [place] [phone] Jessie Banegas P.T., D.P.T. [address] [place] [phone] Pain Low Back Unspecified Social History Tobacco [...] How often do you attend [facility] or druze services? Never 08/09/2022 Do you belong to any clubs o r organizations such as samaritan groups, unions, fraternal or athletic groups, or [...] Answer Date Recorded PHQ-2 Score 4 11/28/2022 [facility] of Occupat ional Health - Occupational Stress [...] your living situation today? I have a [facility] place to live 09/21/2023 Education Answer Date Recorded What is the highest level of school you have completed or the highest degree you have received? Associate degree: academic program 08/09/2022 Comments Unknown Sex and Gender Information Value Date Recorded Sex Assigned at Female 08/09/2022 10:14 AM CDT Legal Sex Female 7:02 PM FIRER DIESEL LOCOMOTIVE Gender Identity Female 08/09/2022 10:14 AM CDT Sexual Orientation Straight 08/09/2022 10 :14 AM CDT documented as of this encounter Plan of Treatment Upcoming Encounters Date Type Department Care Team (Late st Contact Info) Description 01/15/2025 10:30 AM CDT Clinical Support Department of Rehabilitation Services in [address] [place] [address] Emanuel Garcia M.D. [address] [place] [phone] Penny Hollingsworth P.T., D.P.T. 01/20/2025 10:30 AM CDT Clinical Support Department of Rehabilitation Services in [address] [place] [address] Emanuel Garcia M.D. [address] [place] [phone] Jessie Banegas P.T., D.P.T. [address] [place] [address] [place] [phone] 01/22/2025 10:30 AM CDT Clinical Support Department of Rehabilitation Services in [address] [phone] Emanuel Garcia M.D. [address] [place] [phone] Penny Hollingsworth P.T., D.P.T. 01/27/2025 10:30 AM CDT Clinical Support Department of Rehabilitation Services in [address] [place] [address] Emanuel Garcia M.D. [address] [place] [phone] Jessie Banegas P.T., D.P.T. [address] [place] [address] [place] [address] 01/29/2025 10:30 AM CDT Clinical Support Department of Rehabilitation Services in [address] [place] [address] Emanuel Garcia M.D. [address] [place] [phone] Penny Hollingsworth P.T., D.P.T. 02/03/2025 10:30 AM CDT Clinical Support Department of Rehabilitation Services in [address] [phone] Emanuel Garcia M.D. [address] [place] [phone] Jessie Banegas P.T., D.P.T. [address] [place] [address] [address] 02/05/2025 10:30 AM CDT Clinical Support Department of Rehabilitation Services in [address] [place] [address] Emanuel Garcia M.D. [address] [place] [phone] Penny Hollingsworth P.T., D.P.T. 02/10/2025 10:30 AM CDT Clinical Support Department of Rehabilitation Services in [address] [place] [address] Emanuel Garcia M.D. [address] [place] [phone] Jessie Banegas P.T., D.P.T. [address] [place] [phone] 02/12/2025 10:30 AM CDT Clinical Support Department of Rehabilitation Services in [address] [phone] Emanuel Garcia M.D. [address] [place] [phone] Penny Hollingsworth P.T., D.P.T. documented as of this encounter Visit Diagnoses Diagnosis Pain Low Back Unspecified documented in this encounter Additional Health Concerns Assessment Noted Time PHQ-9 Depression Total Score: 8 11/28/19 23 7:25 PM FIRER DIESEL LOCOMOTIVE documented as of this encounter Care Teams Supervisor Metal Hanging Relationship Specialty Start Date End Date Elsewhere, Pcp PCP - General Internal Medicine 12/12/22 documented as of this encounter
--- OUTSIDE RECORDS SUMMARY | 2025-01-14 06:15 | XMS_ITS | Encounter Summary ---
Author Organization [facility] Address [address] [place] [address] Care Team Providers Care Armed Guard Name Role Phone Elsewhere, Pcp Primary Care Provider Unavailabl e Encounter Details Date Type Department Care Team (Latest Contact Info) Description 12/16/2024 11:16 AM DIRECTOR OPERATIONS BROADCAST - 12/16/2024 11:59 PM DIRECTOR OPERATIONS BROADCAST Hospital Encounter Department of Laboratory Medicine in [address] [phone] Noemy Ko M.D. 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 Never 08/09/2022 Do you belong to any clubs o r organizations such as muslim groups, unions, fraternal or athletic groups, or [...] Answer Date Recorded PHQ-2 Score 4 11/28/2022 [facility] of Occupat ionor Health - Occupational Stress Questionnaire Answer Date [...] your living situation today? I have a [facility] place to live 09/21/2023 Education Answer Date Recorded What is the highest level of school you have completed or the highest degree you have received? Associate degree: academic program 08/09/2022 Comments Unknown Sex and Gender Information Value Date Recorded Sex Assigned at Female 08/09/2022 10:14 AM CDT Legal Sex Female 7:02 PM DIRECTOR OPERATIONS BROADCAST Gender Identity Female 08/09/2022 10:14 AM CDT [...] as needed for pain Indications: backache. artificial tear,[id number]-ibl, (GENTEAL TEARS) 0.1-0.3-0.2 % drops ophthalmic solution Administer 1 drop into both eyes 4 (four) times a day as needed (dry eyes). 4 atorvastatin (Lipitor) 40 mg tablet Take 1 tablet (40 mg total) by mouth daily with dinner. 90 tablet 3 01/01/2025 1:05 PM DIRECTOR OPERATIONS BROADCAST 4 buprenorphine-nalox one (Suboxone) 2-0.5 mg per SL tablet Place 0.5 tablets under the tongue 2 (two) times a day. May increase to 3 (three) times a day if tolerated. 36 tablet 11/19/2024 2:08 PM DIRECTOR OPERATIONS BROADCAST 5 buprenorphine-nalox one (Suboxone) 2-0.5 mg per SL tablet Take one tablet sublingually 3 (three) times daily, dosing every 8 hours for chronic pain 84 tablet 12/26/2024 4:13 PM DIRECTOR OPERATIONS BROADCAST 5 citalopram (CeleXA) 40 mg tablet Take 1 Tablet (40 mg) by mouth once daily. 90 tablet 1 01/01/2025 1:05 PM DIRECTOR OPERATIONS BROADCAST 4 diclofenac sodium (VOLTAREN) 1 % gel [...] external ears). 60 g 11/02/2023 1:05 PM DIRECTOR OPERATIONS BROADCAST 3 gabapentin (NEURONTIN) 100 mg capsule Take [...] breakfast. 90 tablet 1 01/01/2025 1:05 PM DIRECTOR OPERATIONS BROADCAST 4 methocarbamoL (ROBAXIN) 500 mg tablet Take [...] buprenorphine first. 30 tablet 12/03/2024 2:20 PM DIRECTOR OPERATIONS BROADCAST 5 oxyCODONE (Roxicodone) 10 mg IR tablet Take 1 tablet (10 mg total) by mouth 3 (three) times a day as needed for severe breakthrough pain or score 7-10 of 10.Avoid taking within 1-2 hours of buprenorphine. Take buprenorphine first. 42 tablet 11/19/2024 2:08 PM DIRECTOR OPERATIONS BROADCAST 5 oxyCODONE (Roxicodone) 10 mg IR tablet Take 1 (one) tablet by mouth 3 (three) times daily as needed for severe breakthrough pain rated 7-10/10. Avoid taking within 1-2 hours of buprenorphine. Take buprenorphine first. 45 tablet 12/12/2024 3:43 PM DIRECTOR OPERATIONS BROADCAST 5 oxyCODONE (Roxicodone) 10 mg IR tablet Take 1 tablet by mouth 3 (three) times daily as needed for severe breakthrough pain rated 7-10/10. Avoid taking within 1-2 hours of buprenorphine. Take buprenorphine first. 45 tablet 12/26/2024 4:13 PM DIRECTOR OPERATIONS BROADCAST 5 polyethylene glycol (MIRALAX) 17 gram/dose oral [...] bedtime. 90 tablet 3 11/14/2024 11:07 AM DIRECTOR OPERATIONS BROADCAST 4 warfarin (JANTOVEN) 5 mg tablet Take 5 mg by mouth. Take 5 mg by mouth daily Coumadin 5 mg , , Sunday and 7.5 mg on Sunday. Next INR 6/3 to be drawn by sales expert home [employer] and results to PCP. warfarin (Jantoven) 5 mg tablet Take by mouth 10 mg (5 mg x 2) every Tue, Suzanne; 7.5 mg (5 mg x 1.5) all other days in the evening OR as directed 150 tablet 09/05/2024 12:21 PM DIRECTOR OPERATIONS BROADCAST 4 warfarin (Jantoven) 5 mg tablet Take 2 tablets (10 mg) by mouth every e, Suzanne; take 1.5 tablets (7.5 mg) all other days in the evening OR as directed 150 tablet 12/11/2024 1:40 PM DIRECTOR OPERATIONS BROADCAST 5 oxyCODONE (Roxicodone) 5 mg immediate release tablet Take 1 Tablet (5 mg) by mouth three times daily. 15 tablet 11/14/2024 11:07 AM DIRECTOR OPERATIONS BROADCAST 5 01/08/20 documented as of this encounter Plan of Treatment Upcoming Encounters Date Type Department Care Team (Late st Contact Info) Description 01/15/2025 10:30 AM CDT Clinical Support Department of Rehabilitation Services in [address] [phone] Emanuel Garcia M.D. [address] [place] [phone] Penny Hollingsworth P.T., D.P.T. 01/20/2025 10:30 AM CDT Clinical Support Department of Rehabilitation Services in [address] [phone] Emanuel Garcia M.D. [address] [place] [phone] Jessie Banegas P.T., D.P.T. [address] [place] [phone] 01/22/2025 10:30 AM CDT Clinical Support Department of Rehabilitation Services in [address] [place] [address] Emanuel Garcia M.D. [address] [place] [phone] Penny Hollingsworth P.T., D.P.T. 01/27/2025 10:30 AM CDT Clinical Support Department of Rehabilitation Services in [address] [place] [address] Emanuel Garcia M.D. [address] [place] [phone] Jessie Banegas P.T., D.P.T. [address] [place] [address] [place] [phone] 01/29/2025 10:30 AM CDT Clinical Support Department of Rehabilitation Services in [address] [place] [address] Emanuel Garcia M.D. [address] [place] [phone] Penny Hollingsworth P.T., D.P.T. 02/03/2025 10:30 AM CDT Clinical Support Department of Rehabilitation Services in [address] [place] [address] Emanuel Garcia M.D. [address] [place] [phone] Jessie Banegas P.T., D.P.T. [address] [place] [phone] 02/05/2025 10:30 AM CDT Clinical Support Department of Rehabilitation Services in [address] [address] Emanuel Garcia M.D. [address] [place] [phone] Penny Hollingsworth P.T., D.P.T. 02/10/2025 10:30 AM CDT Clinical Support Department of Rehabilitation Services in [address] [address] Emanuel Garcia M.D. [address] [place] [phone] Jessie Banegas P.T., D.P.T. [address] [place] [phone] 02/12/2025 10:30 AM CDT Clinical Support Department of Rehabilitation Services in [address] [address] Emanuel Garcia M.D. [address] [place] [phone] Penny Hollingsworth P.T., D.P.T. documented as of this encounter Procedures Procedure Name Priority Date/Time Associated Diagnosis Comments PROTHROMBIN TIME (PT), P Routine 12/16/2024 11:23 AM DIRECTOR OPERATIONS BROADCAST Hypothyroidism Acquired Penitentiary (Current) Anticoagulant Treatment Antiphospholipid Antibody Syndrome (HCC) Stroke (HCC) Patent Foramen Ovale (HCC) BASIC METABOLIC PANEL, S/P Routine 12/16/2024 11:23 AM DIRECTOR OPERATIONS BROADCAST Chronic Kidney Disease (CKD), Stage 3a Glomerular Filtration Rate (GFR) 45 To 59 (HCC) documented in this encounter Results * (ABNORMAL) Basic Metabolic Panel (12/16/2024 11:23 AM DIRECTOR OPERATIONS BROADCAST) Potassium, P 4.9 3.6 - 5.2 mmol/L 12/16/2024 11:50 AM DIRECTOR OPERATIONS BROADCAST CNFL Sodium, P 142 135 - 145 mmol/L 12/16/2024 11:50 AM DIRECTOR OPERATIONS BROADCAST CNFL Chloride, P 106 98 - 107 mmol/L 12/16/2024 11:50 AM DIRECTOR OPERATIONS BROADCAST CNFL Bicarbonate, P 28 22 - 29 mmol/L 12/16/2024 11:50 AM DIRECTOR OPERATIONS BROADCAST CNFL Anion Gap, P 8 7 - 15 12/16/2024 11:50 AM DIRECTOR OPERATIONS BROADCAST CNFL BUN (Blood Urea Nitrogen), P 18 6 - 21 mg/dL 12/16/2024 11:50 AM DIRECTOR OPERATIONS BROADCAST CNFL Creatinine 1.05(H) 0.59 - 1.04 mg/dL 12/16/2024 11:50 AM DIRECTOR OPERATIONS BROADCAST CNFL Estimated GFR (eGFR) 55(L) >=60 mL/min/BSA 12/16/2024 11:50 AM DIRECTOR OPERATIONS BROADCAST CNFL Comment: Estimated GFR calculated using the 2020 CKD_EPI creatinine equation. Calcium, Total, P 8.9 8.8 - 10.2 mg/dL 12/16/2024 11:50 AM DIRECTOR OPERATIONS BROADCAST CNFL Glucose, P 84 70 - 140 mg/dL 12/16/2024 11:50 AM DIRECTOR OPERATIONS BROADCAST CNFL Blood (Blood, Venous) 12/16/2024 11:23 AM DIRECTOR OPERATIONS BROADCAST 12/16/2024 11:24 AM DIRECTOR OPERATIONS BROADCAST us Noemy Ko M.D. LAB BLOOD ADD-ON Final Result [facility] [address] [place] [phone], [facility] CNFL [facility] in [address] [address] * (ABNORMAL) Prothrombin Time (PT) (12/16/2024 11:23 AM DIRECTOR OPERATIONS BROADCAST) Prothrombin Time, P 23.7(H) 9.4 - 12.5 sec 12/16/2024 11:34 AM DIRECTOR OPERATIONS BROADCAST CNFL INR 2.1 0.9 - 1.1 12/16/2024 11:34 AM DIRECTOR OPERATIONS BROADCAST CNFL Comment: ----ADDITIONAL INFORMATION---- Standard intensity warfarin therapeutic range: 2.0 to 3.0 High intensity warfarin therapeutic range: 2.5 to 3.5 Blood (Blood, Venous) 12/16/2024 11:23 AM DIRECTOR OPERATIONS BROADCAST 12/16/2024 11:24 AM DIRECTOR OPERATIONS BROADCAST us Noemy Ko M.D. LAB BLOOD ADD-ON Final Result [facility] [address] [place] [address], [facility] in [address] [address] documented in this encounter Visit Diagnoses Diagnosis Hypothyroidism Acquired Penitentiary (Current) Anticoagulant Treatment Antiphospholipid Antibody Syndrome (HCC) Stroke (HCC) Patent Foramen Ovale (HCC) Chronic Kidney Disease (CKD), Stage 3a Glomerular Filtration Rate (GFR) 45 To 59 (HCC) documented in this encounter Additional Health Concerns Assessment Noted Time PHQ-9 Depression Total Score: 8 11/28/19 23 7:25 PM DIRECTOR OPERATIONS BROADCAST documented as of this encounter Care Teams Armed Guard Relationship Specialty Start Date End Date Elsewhere, Pcp PCP - General Internal Medicine 12/12/22 documented as of this encounter
--- OUTSIDE RECORDS SUMMARY | 2025-01-14 06:15 | XMS_ITS | Encounter Summary ---
Author Organization [facility] Address [address] [place] [address] Care Team Providers Care Mattress Inspector Name Role Phone Elsewhere, Pcp Primary Care Provider Unavailabl e Reason for Visit * Physical Therapy (Routine) - Authorized Specialty Diagnoses / Procedures Referred By Shell t Referred To Contact Diagnoses Pain Low Back Unspecified Procedures PT Ongoing treatment Emanuel Garcia M.D. [address] [place] [address] Phone: tel: fax: [facility] Region Referral ID Status Reason Start Date Expiration Date V isits Requested Visits Authorized [id number] Authorized 10/02/2024 10/02/2025 99 [phone] Encounter Details Date Type Department Care Team (Late st Contact Info) Description 01/08/2025 10:30 AM CDT Clinical Support Department of Rehabilitation Services in [address] [phone] Emanuel Garcia M.D. [address] [place] [phone] Penny Hollingsworth PMark., D.P.T. Pain Low Back Unspecified Social History [...] week 08/09/2022 How often do you attend [facility] or mosque services? Never 08/09/2022 Do you belong to any clubs o r organizations such as religion groups, unions, fraternal or athletic groups, or [...] Answer Date Recorded PHQ-2 Score 4 11/28/2022 [facility] of Occupat ional Health - Occupational Stress [...] your living situation today? I have a [facility] place to live 09/21/2023 Education Answer Date Recorded What is the highest level of school you have completed or the highest degree you have received? Associate degree: academic program 08/09/2022 Comments Unknown Sex and Gender Information Value Date Recorded Sex Assigned at Female 08/09/2022 10:14 AM CDT Legal Sex Female 7:02 PM PLANT CARE WORKER Gender Identity Female 08/09/2022 10:14 AM CDT Sexual Orientation Straight 08/09/2022 10 :14 AM CDT documented as of this encounter Progress Notes * RouPenny noe P.T., D.P.T. - 01/08/2025 10:30 AM CDT Physical Therapy Outpatient Treatment Note SUBJECTIVE Patient's Name: Margie Younger Referring Provider: Emanuel Garcia M.D. Visit Diagnosis: 1. Pain Low Back Unspecified Payor: MEDICARE / Plan: MEDICARE A AND B / Product Type: Medicare / No data recorded Epic Visit Count: 25 Patient comments: Patient complains of L knee pain. She reports that she needs to get it replaced but is fearful. She is also impacted by vertigo, but does go [facility] looked at OBJECTIVE Pain: No new complaint TREATMENT Treatment today consisted of: Therapeutic Exercise: -Sci-Fit Total body ergometer at level 3 resistance times 15 minutes. -Forward step ups and retro step backs two sets of 3x4 steps with bilateral hand rails -Lateral step ups bilaterally, two sets of 3x4 step -[place]uscola band resisted hip abduction/extension kicks 2x10 -Tuscola band resisted pallof press rotations 2x10 -Green band resisted seated HS curls 2x10 Assessment Clinical Impression: Patient demonstrated improved dynamic strength and stability today. Patient will continue to benefit from skilled [...] in order to improve functional independence with rivet tosser and activities PT Goal #2 to be [...] building. Time Spent with Patient Therapeutic Interventions Therapeutic Exercise (min): 40 min Time Tracking Total Timed Units (min): 40 min Total Treatment Time (min): 40 min documented in this encounter Plan of Treatment Upcoming Encounters Date Type Department Care Team (Late st Contact Info) Description 01/15/2025 10:30 AM CDT Clinical Support Department of Rehabilitation Services in [address] [phone] Emanuel Garcia M.D. [address] [place] [phone] Penny Hollingsworth P.T., D.P.T. 01/20/2025 10:30 AM CDT Clinical Support Department of Rehabilitation Services in [address] [phone] Emanuel Garcia M.D. [address] [place] [phone] Jessie Banegas P.T., D.P.T. [address] [place] [phone] 01/22/2025 10:30 AM CDT Clinical Support Department of Rehabilitation Services in [address] [address] Emanuel Garcia M.D. [address] [place] [phone] Penny Hollingsworth P.T., D.P.T. 01/27/2025 10:30 AM CDT Clinical Support Department of Rehabilitation Services in [address] [address] Emanuel Garcia M.D. [address] [place] [phone] Jessie Banegas P.T., D.P.T. [address] [place] [phone] 01/29/2025 10:30 AM CDT Clinical Support Department of Rehabilitation Services in [address] [address] Emanuel Garcia M.D. [address] [place] [phone] Penny Hollingsworth P.T., D.P.T. 02/03/2025 10:30 AM CDT Clinical Support Department of Rehabilitation Services in [address] [phone] Emanuel Garcia M.D. [address] [place] [phone] Jessie Banegas P.T., D.P.T. [address] [place] [phone] 02/05/2025 10:30 AM CDT Clinical Support Department of Rehabilitation Services in [address] [address] Emanuel Garcia M.D. [address] [place] [phone] Penny Hollingsworth P.T., D.P.T. 02/10/2025 10:30 AM CDT Clinical Support Department of Rehabilitation Services in [address] [address] Emanuel Garcia M.D. [address] [place] [phone] Jessie Banegas P.T., D.P.T. [address] [place] [phone] 02/12/2025 10:30 AM CDT Clinical Support Department of Rehabilitation Services in [address] [address] Emanuel Garcia M.D. [address] [place] [phone] Penny Hollingsworth P.T., D.P.T. documented as of this encounter Visit Diagnoses Diagnosis Pain Low Back Unspecified documented in this encounter Additional Health Concerns Assessment Noted Time PHQ-9 Depression Total Score: 8 11/28/19 23 7:25 PM PLANT CARE WORKER documented as of this encounter Care Teams Mattress Inspector Relationship Specialty Start Date End Date Elsewhere, Pcp PCP - General Internal Medicine 12/12/22 documented as of this encounter
--- OUTSIDE RECORDS SUMMARY | 2025-01-14 06:15 | XMS_ITS | Encounter Summary ---
Author Organization [facility] Address [address] [place] [address] Care Team Providers Care Tank Operator Name Role Phone Elsewhere, Pcp Primary Care Provider Unavailabl e Reason for Visit * Physical Therapy (Routine) - Authorized Specialty Diagnoses / Procedures Referred By Shell t Referred To Contact Diagnoses Pain Low Back Unspecified Procedures PT Ongoing treatment Emanuel Garcia M.D. [address] [place] [address] Phone: tel: fax: [facility] Region Referral ID Status Reason Start Date Expiration Date V isits Requested Visits Authorized [id number] Authorized 10/02/2024 10/02/2025 99 [phone] Encounter Details Date Type Department Care Team (Latest Contact Info) Description 12/23/2024 10:30 AM SOFTWARE VALIDATION TECHNICIAN Clinical Support Department of Rehabilitation Services in [address] [phone] Emanuel Garcia M.D. [address] [place] [phone] Jessie Banegas P.T., D.P.T. [address] [place] [phone] Pain Low Back Unspecified Social History Tobacco [...] week 08/09/2022 How often do you attend [facility] or taoism services? Never 08/09/2022 Do you belong to any clubs o r organizations such as taoism groups, unions, fraternal or athletic groups, or [...] Answer Date Recorded PHQ-2 Score 4 11/28/2022 [facility] Occup[facility] ional Health - Occupational [...] your living situation today? I have a [facility] place to live 09/21/2023 Education Answer Date Recorded What is the highest level of school you have completed or the highest degree you have received? Associate degree: academic program 08/09/2022 Comments Unknown Sex and Gender Information Value Date Recorded Sex Assigned at Female 08/09/2022 10:14 AM CDT Legal Sex Female 7:02 PM SOFTWARE VALIDATION TECHNICIAN Gender Identity Female 08/09/2022 10:14 AM CDT Sexual Orientation Straight 08/09/2022 10 :14 AM CDT documented as of this encounter Progress Notes * Jessie Banegas P.T., D.P.T. - 12/23/2024 10:30 AM CST Physical Therapy Outpatient Treatment Note SUBJECTIVE Patient's Name: Margie Younger Referring Provider: Emanuel Garcia M.D. Visit Diagnosis: 1. Pain Low Back Unspecified Payor: MEDICARE / Plan: MEDICARE A AND B / Product Type: Medicare / No data recorded Epic Visit Count: 21 Patient comments: Patient reports she continues with her vestibular testing. She also plans to get her left knee and neck looked at due to pain. OBJECTIVE Pain: Patient continues to report pain. TREATMENT Treatment today consisted of: Patient perform the Weavly-Fit Total body ergometer at level 2 resistance times 10 minutes. Performed standing hip abduction standing hip extension at 2 x 10 repetitions utilizing a pink Thera-Band. Performed dynamic lumbar stabilization with lower extremity straight leg raises at 2 x 10 repetitions bilaterally. Also performed bridging times 10 repetitions. Home Exercise Program/Education: Access Code: [email or web address] URL: [email or web address] Prepared by: Chichi Storey Exercises - Supine Posterior Pelvic Tilt - 1 x daily - 7 x weekly - 1 sets - 10 reps - Seated Long Arc Quad - 1 x daily - 7 x weekly - 1-3 sets - 10 reps - Sit to Stand with Armchair - 1 x daily - 7 x weekly - 1 sets - 10 reps - Standing Heel Raises - 1 x daily - 7 x weekly - 3 sets - 10 reps - Side Stepping with Resistance at Thighs and Counter Support - 1 x daily - 7 x weekly - 3 sets - 10 reps - Step Up - 1 x daily - 7 x weekly - 1 sets - 10 reps -1/2 step tandem stance 2 x 30 seconds -1/2 step tandem stance horizontal and vertical head movements 2 x 30 seconds Patient reports good HEP compliance. Assessment Clinical Impression: Patient tolerated treatment session well. Patient continues to benefit from skilled physical therapy to improve strength endurance and function. Functional Goals and Timeframes: PT Goal #1: Patient will improve bilateral LE strength to 4/5 in order to progress toward PLOF and improve overall gait mechanics PT Goal #1 to be achieved by: 01/30/25 PT Goal #1 Status: Progressing PT Goal #2: Patient will report less than 3/10 pain in low back and RLE in order to improve functional independence with elementary vocal music teacher and activities PT Goal #2 to be [...] Status: Achieved Plan Plan for next session: strengthening and stabilization Time Spent with Patient Therapeutic Interventions Therapeutic Exercise (min): 30 min Time Tracking Total Timed Units (min): 30 min Total Treatment Time (min): 30 min WARE VALIDATION TECHNICIAN documented in this encounter Plan of Treatment Upcoming Encounters Date Type Department Care Team (Late st Contact Info) Description 01/15/2025 10:30 AM CDT Clinical Support Department of Rehabilitation Services in [address] [phone] Emanuel Garcia M.D. [address] [place] [phone] Penny Hollingsworth PSamantha, D.P.T. 01/20/2025 10:30 AM CDT Clinical Support Department of Rehabilitation Services in [address] [phone] Emanuel Garcia M.D. [address] [place] [phone] Jessie Banegas P.T., D.P.T. [address] [place] [phone] 01/22/2025 10:30 AM CDT Clinical Support Department of Rehabilitation Services in [address] [place] [address] Emanuel Garcia M.D. [address] [place] [phone] Penny Hollingsworth P.T., D.P.T. 01/27/2025 10:30 AM CDT Clinical Support Department of Rehabilitation Services in [address] [place] [address] Emanuel Garcia M.D. [address] [place] [phone] Jessie Banegas P.T., D.P.T. [address] [place] [phone] 01/29/2025 10:30 AM CDT Clinical Support Department of Rehabilitation Services in [address] [place] [address] Emanuel Garcia M.D. [address] [place] [phone] Penny Hollingsworth P.T., D.P.T. 02/03/2025 10:30 AM CDT Clinical Support Department of Rehabilitation Services in [address] [place] [address] Emanuel Garcia M.D. [address] [place] [phone] Jessie Banegas P.T., D.P.T. [address] [place] [phone] 02/05/2025 10:30 AM CDT Clinical Support Department of Rehabilitation Services in [address] [phone] Emanuel Garcia M.D. [address] [place] [phone] Penny Hollingsworth P.T., D.P.T. 02/10/2025 10:30 AM CDT Clinical Support Department of Rehabilitation Services in [address] [phone] Emanuel Garcia M.D. [address] [place] [phone] Jessie Banegas P.T., D.P.T. [address] [place] [phone] 02/12/2025 10:30 AM CDT Clinical Support Department of Rehabilitation Services in [address] [phone] Emanuel Garcia M.D. [address] [place] [phone] Penny Hollingsworth P.T., D.P.T. documented as of this encounter Visit Diagnoses Diagnosis Pain Low Back Unspecified documented in this encounter Additional Health Concerns Assessment Noted Time PHQ-9 Depression Total Score: 8 11/28/19 23 7:25 PM SOFTWARE VALIDATION TECHNICIAN documented as of this encounter Care Teams Tank Operator Relationship Specialty Start Date End Date Elsewhere, Pcp PCP - General Internal Medicine 12/12/22 documented as of this encounter
--- OUTSIDE RECORDS SUMMARY | 2025-01-14 06:15 | XMS_ITS | Encounter Summary ---
Author Organization [facility] Address [address] [place] [address] Care Team Providers Care Gas Torch Brazier Name Role Phone Elsewhere, Pcp Primary Care Provider Unavailabl e Reason for Visit * Physical Therapy (Routine) - Authorized Specialty Diagnoses / Procedures Referred By Shell t Referred To Contact Diagnoses Pain Low Back Unspecified Procedures PT Ongoing treatment Emanuel Garcia M.D. [address] [place] [address] Phone: tel: fax: [facility] Region Referral ID Status Reason Start Date Expiration Date V isits Requested Visits Authorized [id number] Authorized 10/02/2024 10/02/2025 99 99 Encounter Details Date Type Department Care Team (Latest Contact Info) Description 01/06/2025 2:00 PM CDT Clinical Support Department of Rehabilitation Services in [address] [phone] Emanuel Garcia M.D. [address] [place] [phone] Jessie Banegas P.T., D.P.T. [address] [place] [phone] Pain Low Back Unspecified Social History Tobacco [...] week 08/09/2022 How often do you attend [facility] or pentecostal services? Never 08/09/2022 Do you belong to any clubs o r organizations such as pentecostalism groups, unions, fraternal or athletic groups, or [...] Answer Date Recorded PHQ-2 Score 4 11/28/2022 [facility] of Occupat ional Health - Occupational [...] your living situation today? I have a [facility] place to live 09/21/2023 Education Answer Date Recorded What is the highest level of school you have completed or the highest degree you have received? Associate degree: academic program 08/09/2022 Comments Unknown Sex and Gender Information Value Date Recorded Sex Assigned at Female 08/09/2022 10:14 AM CDT Legal Sex Female 7:02 PM JUNIOR WEB DEVELOPER Gender Identity Female 08/09/2022 10:14 AM CDT Sexual Orientation Straight 08/09/2022 10 :14 AM CDT documented as of this encounter Progress Notes * Jessie Banegas P.T., D.P.T. - 01/06/2025 2:00 PM CDT Physical Therapy Outpatient Treatment Note SUBJECTIVE Patient's Name: Margie Younger Referring Provider: Emanuel Garcia M.D. Visit Diagnosis: 1. Pain Low Back Unspecified Payor: MEDICARE / Plan: MEDICARE A AND B / Product Type: Medicare / No data recorded Epic Visit Count: 24 Patient comments: Patient is feeling lightheaded today. OBJECTIVE Pain: left knee pain. She is consulting with orthopedics regarding a Left TKA soon. TREATMENT Treatment today consisted of: Patient perform the FieldLens-Fit Total body ergometer at level 2 resistance times 14 minutes. We then performed dynamic lumbar stabilization with unsupported sitting for lower extremity knee extension andmarching with 4 lb cuff weights at the ankles at 3 x 10 repetitions each. Performed standing hip abduction cuing on transverse abdominal contraction at 3 x 10 repetitions bilaterally. Assessment Clinical Impression: Patient tolerated treatment session with more exercises in sitting due to lightheadedness. Patient continues do through the [facility] regarding her vertigo. She also consult with orthopedics regarding a left total knee arthroplasty. Functional Goals and Timeframes: PT Goal #1: Patient will improve bilateral LE strength to 4/5 in order to progress toward PLOF and improve overall gait mechanics PT Goal #1 to be achieved by: 01/30/25 PT Goal #1 Status: Progressing PT Goal #2: Patient will report less than 3/10 pain in low back and RLE in order to improve functional independence with [employer] and activities PT Goal #2 to be [...] Status: Achieved Plan Plan for next session: strengthening, stabilization and endurance training. Time Spent with Patient Therapeutic Interventions Therapeutic Exercise (min): 33 min Time Tracking Total Timed Units (min): 33 min Total Treatment Time (min): 33 min documented in this encounter Plan of Treatment Upcoming Encounters Date Type Department Care Team (Late st Contact Info) Description 01/15/2025 10:30 AM CDT Clinical Support Department of Rehabilitation Services in [address] [phone] Emanuel Garcia M.D. [address] [place] [phone] Penny Hollingsworth P.T., D.P.T. 01/20/2025 10:30 AM CDT Clinical Support Department of Rehabilitation Services in [address] [phone] Emanuel Garcia M.D. [address] [place] [phone] Jessie Banegas P.T., D.P.T. [address] [place] [phone] 01/22/2025 10:30 AM CDT Clinical Support Department of Rehabilitation Services in [address] [phone] Emanuel Garcia M.D. [address] [place] [phone] Penny Hollingsworth P.T., D.P.T. 01/27/2025 10:30 AM CDT Clinical Support Department of Rehabilitation Services in [address] [phone] Emanuel Gracia M.D. [address] [place] [phone] Jessie Banegas P.T., D.P.T. [address] [place] [phone] 01/29/2025 10:30 AM CDT Clinical Support Department of Rehabilitation Services in [address] [phone] Emanuel Garcia M.D. [address] [place] [phone] Penny Hollingsworth P.T., D.P.T. 02/03/2025 10:30 AM CDT Clinical Support Department of Rehabilitation Services in [address] [phone] Emanuel Garcia M.D. [address] [place] [phone] Jessie Banegas P.T., D.P.T. [address] [place] [phone] 02/05/2025 10:30 AM CDT Clinical Support Department of Rehabilitation Services in [address] [phone] Emanuel Garcia M.D. [address] [place] [phone] Penny Hollingsworth P.T., D.P.T. 02/10/2025 10:30 AM CDT Clinical Support Department of Rehabilitation Services in [address] [phone] Emanuel Garcia M.D. [address] [place] [phone] Jessie Banegas P.T., D.P.T. [address] [place] [phone] 02/12/2025 10:30 AM CDT Clinical Support Department of Rehabilitation Services in [address] [phone] Emanuel Garcia M.D. [address] [place] [phone] Penny Hollingsworth P.T., D.P.T. documented as of this encounter Visit Diagnoses Diagnosis Pain Low Back Unspecified documented in this encounter Additional Health Concerns Assessment Noted Time PHQ-9 Depression Total Score: 8 11/28/19 23 7:25 PM JUNIOR WEB DEVELOPER documented as of this encounter Care Teams Gas Torch Brazier Relationship Specialty Start Date End Date Elsewhere, Pcp PCP - General Internal Medicine 12/12/22 documented as of this encounter
--- OUTSIDE RECORDS SUMMARY | 2025-01-14 06:15 | XMS_ITS | Encounter Summary ---
Author Organization [facility] Address [address] [place] [address] Care Team Providers Care Framing Mechanic Name Role Phone Elsewhere, Pcp Primary Care Provider Unavailabl e Encounter Details Date Type Department Care Team (Latest Contact Info) Description 01/13/2025 10:18 AM CDT - 01/13/2025 11:59 PM CDT Hospital Encounter Department of Laboratory Medicine in [address] [phone] Noemy Ko M.D. 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 Never 08/09/2022 Do you belong to any clubs o r organizations such as sabianist groups, unions, fraternal or athletic groups, or [...] Answer Date Recorded PHQ-2 Score 4 11/28/2022 [facility] Occupat ional Health - Occupational [...] money to buy more. Never true 09/21/20 Within the past 12 months, t he [...] your living situation today? I have a [facility] place to live 09/21/2023 Education Answer Date Recorded What is the highest level of school you have completed or the highest degree you have received? Associate degree: academic program 08/09/2022 Comments Unknown Sex and Gender Information Value Date Recorded Sex Assigned at Female 08/09/2022 10:14 AM CDT Legal Sex Female 7:02 PM DRAWING PRESS OPERATOR Gender Identity Female 08/09/2022 10:14 AM CDT [...] as needed for pain Indications: backache. artificial tear,[id number], (GENTEAL TEARS) 0.1-0.3-0.2 % drops ophthalmic solution Administer 1 drop into both eyes 4 (four) times a day as needed (dry eyes). 4 atorvastatin (Lipitor) 40 mg tablet Take 1 tablet (40 mg total) by mouth daily with dinner. 90 tablet 3 01/01/2025 1:05 PM DRAWING PRESS OPERATOR 4 buprenorphine-nalox one (Suboxone) 2-0.5 mg [address] tablet [address] 0.5 tablets under the tongue 2 (two) times a day. May increase to 3 (three) times a day if tolerated. 36 tablet 11/19/2024 2:08 PM DRAWING PRESS OPERATOR 5 buprenorphine-nalox one (Suboxone) 2-0.5 mg per SL tablet Take one tablet sublingually 3 (three) times daily, dosing every 8 hours for chronic pain 84 tablet 12/26/2024 4:13 PM DRAWING PRESS OPERATOR 5 buprenorphine-nalox one (Suboxone) 2-0.5 mg per SL tablet [address] 1 tablet under the tongue 3 (three) times a day. For chronic pain. 84 tablet 5 citalopram (CeleXA) 40 mg tablet Take 1 Tablet (40 mg) by mouth once daily. 90 tablet 1 01/01/2025 1:05 PM DRAWING PRESS OPERATOR 4 diclofenac sodium (VOLTAREN) 1 % gel [...] external ears). 60 g 11/02/2023 1:05 PM DRAWING PRESS OPERATOR 3 gabapentin (NEURONTIN) 100 mg capsule Take [...] breakfast. 90 tablet 1 01/01/2025 1:05 PM DRAWING PRESS OPERATOR 4 methocarbamoL (ROBAXIN) 500 mg tablet Take [...] buprenorphine first. 30 tablet 12/03/2024 2:20 PM DRAWING PRESS OPERATOR 5 oxyCODONE (Roxicodone) 10 mg IR tablet Take 1 tablet (10 mg total) by mouth 3 (three) times a day as needed for severe breakthrough pain or score 7-10 of 10.Avoid taking within 1-2 hours of buprenorphine. Take buprenorphine first. 42 tablet 11/19/2024 2:08 PM DRAWING PRESS OPERATOR 5 oxyCODONE (Roxicodone) 10 mg IR tablet Take 1 (one) tablet by mouth 3 (three) times daily as needed for severe breakthrough pain rated 7-10/10. Avoid taking within 1-2 hours of buprenorphine. Take buprenorphine first. 45 tablet 12/12/2024 3:43 PM DRAWING PRESS OPERATOR 5 oxyCODONE (Roxicodone) 10 mg IR tablet Take 1 tablet by mouth 3 (three) times daily as needed for severe breakthrough pain rated 7-10/10. Avoid taking within 1-2 hours of buprenorphine. Take buprenorphine first. 45 tablet 12/26/2024 4:13 PM DRAWING PRESS OPERATOR 5 oxyCODONE (Roxicodone) 5 mg immediate release tablet Take 1 tablet every 4-6 hours as needed for severe breakthrough pain rated 7-10/10, max 3 tablets per day, may take one more per day on therapy days, twice per week 49 tablet 5 oxyCODONE (Roxicodone) 5 mg immediate release tablet Take 1 tablet by mouth every 4-6 hours as needed for severe breakthrough pain rated 7-10/10, max 3 tablets per day. May take one more per day on therapy days twice per week 49 tablet 01/08/2025 11:17 AM CDT 5 polyethylene glycol (MIRALAX) 17 gram/dose oral [...] bedtime. 90 tablet 3 11/14/2024 11:07 AM DRAWING PRESS OPERATOR 4 warfarin (JANTOVEN) 5 mg tablet Take 5 mg by mouth. Take 5 mg by mouth daily Coumadin 5 mg , Sunday and 7.5 mg on Sunday. Next INR 6/3 to be drawn by home care consultant and results to PCP. warfarin (Jantoven) 5 mg tablet Take by mouth 10 mg (5 mg x 2) every Tue, Suzanne; 7.5 mg (5 mg x 1.5) all other days in the evening OR as directed 150 tablet 09/05/2024 12:21 PM DRAWING PRESS OPERATOR 4 warfarin (Jantoven) 5 mg tablet Take 2 tablets (10 mg) by mouth every e, Suzanne; take 1.5 tablets (7.5 mg) all other days in the evening OR as directed 150 tablet 12/11/2024 1:40 PM DRAWING PRESS OPERATOR 5 documented as of this encounter Plan of Treatment Upcoming Encounters Date Type Department Care Team (Late st Contact Info) Description 01/15/2025 10:30 AM CDT Clinical Support Department of Rehabilitation Services in [address] [phone] Emanuel Garcia M.D. [address] [place] [phone] Penny Hollingsworth P.T., D.P.T. 01/20/2025 10:30 AM CDT Clinical Support Department of Rehabilitation Services in [address] [phone] Emanuel Garcia M.D. [address] [place] [phone] Jessie Banegas P.T., D.P.T. [address] [place] [phone] 01/22/2025 10:30 AM CDT Clinical Support Department of Rehabilitation Services in [address] [address] Emanuel Garcia M.D. [address] [place] [phone] Penny Hollingsworth P.T., D.P.T. 01/27/2025 10:30 AM CDT Clinical Support Department of Rehabilitation Services in [address] [phone] Emanuel Garcia M.D. [address] [place] [phone] Jessie Banegas P.T., D.P.T. [address] [place] [phone] 01/29/2025 10:30 AM CDT Clinical Support Department of Rehabilitation Services in [address] [phone] Emanuel Garcia M.D. [address] [place] [phone] Penny Hollingsworth P.T., D.P.T. 02/03/2025 10:30 AM CDT Clinical Support Department of Rehabilitation Services in [address] [place] [address] Emanuel Garcia M.D. [address] [place] [phone] Jessie Banegas P.T., D.P.T. [address] [place] [address] [place] [phone] 02/05/2025 10:30 AM CDT Clinical Support Department of Rehabilitation Services in [address] [place] [address] Emanuel Garcia M.D. [address] [place] [phone] Penny Hollingsworth P.T., D.P.TAkbar 02/10/2025 10:30 AM CDT Clinical Support Department of Rehabilitation Services in [address] [place] [address] Emanuel Garcia M.D. [address] [place] [phone] Jessie Banegas P.T., D.P.T. [address] [place] [address] [place] [phone] 02/12/2025 10:30 AM CDT Clinical Support Department of Rehabilitation Services in [address] [place] [address] Emanuel Garcia M.D. [address] [place] [phone] Penny Hollingsworth P.T., D.P.T. documented as of this encounter Procedures Procedure Name Priority Date/Time Associated Diagnosis Comments PROTHROMBIN TIME (PT), P Routine 01/13/2025 11:14 AM CDT Hypothyroidism Acquired Vending Machine Host/Hostess (Current) Anticoagulant Treatment Antiphospholipid Antibody Syndrome (HCC) Stroke (HCC) Patent Foramen Ovale (HCC) documented in this encounter Results * (ABNORMAL) Prothrombin Time (PT) (01/13/2025 11:14 AM CDT) Prothrombin Time, P 19.0(H) 9.4 - 12.5 sec 01/13/2025 11:30 AM CDT CNFL INR 1.6 0.9 - 1.1 01/13/2025 11:30 AM CDT CNFL Comment: ----ADDITIONAL INFORMATION---- Standard intensity warfarin therapeutic range: 2.0 to 3.0 High intensity warfarin therapeutic range: 2.5 to 3.5 Blood (Blood, Venous) 01/13/2025 11:14 AM CDT 01/13/2025 11:21 AM CDT us Noemy Ko M.D. LAB BLOOD ADD-ON Final Result [facility] [address] [place] [address], [facility] in [address] [address] documented in this encounter Visit Diagnoses Diagnosis Hypothyroidism Acquired Skilled Nursing (Current) Anticoagulant Treatment Antiphospholipid Antibody Syndrome (HCC) Stroke (HCC) Patent Foramen Ovale (HCC) documented in this encounter Additional Health Concerns Assessment Noted Time PHQ-9 Depression Total Score: 8 11/28/19 23 7:25 PM DRAWING PRESS OPERATOR documented as of this encounter Care Teams Framing Mechanic Relationship Specialty Start Date End Date Elsewhere, Pcp PCP - General Internal Medicine 12/12/22 documented as of this encounter
--- OUTSIDE RECORDS SUMMARY | 2025-01-14 06:15 | XMS_ITS | Encounter Summary ---
Author Organization [facility] Address [address] [place] [address] Care Team Providers Care Cantilever Crane Operator Name Role Phone Elsewhere, Pcp Primary Care Provider Unavailabl e Reason for Visit * Physical Therapy (Routine) - Authorized Specialty Diagnoses / Procedures Referred By Shell t Referred To Contact Diagnoses Pain Low Back Unspecified Procedures PT Ongoing treatment Emanuel Garcia M.D. [address] [place] [address] Phone: tel: fax: [facility] Region Referral ID Status Reason Start Date Expiration Date V isits Requested Visits Authorized [id number] Authorized 10/02/2024 10/02/2025 99 99 Encounter Details Date Type Department Care Team (Latest Contact Info) Description 12/30/2024 4:15 PM COMMUNITY HEALTH COORDINATOR Clinical Support Department of Rehabilitation Services in [address] [phone] Emanuel Garcia M.D. [address] [place] [phone] Jessie Banegas P.T., D.P.T. [address] [place] [phone] Pain Low Back Unspecified Social History Tobacco [...] attend [facility] or christian services? Never 08/09/2022 Do you belong to any clubs o r organizations such as confucianism groups, unions, fraternal or athletic groups, or [...] Answer Date Recorded PHQ-2 Score 4 11/28/2022 [facility] - Occupational [...] your living situation today? I have a [facility] place to live 09/21/2023 Education Answer Date Recorded What is the highest level of school you have completed or the highest degree you have received? Associate degree: academic program 08/09/2022 Comments Unknown Sex and Gender Information Value Date Recorded Sex Assigned at Female 08/09/2022 10:14 AM CDT Legal Sex Female 7:02 PM COMMUNITY HEALTH COORDINATOR Gender Identity Female 08/09/2022 10:14 AM CDT Sexual Orientation Straight 08/09/2022 10 :14 AM CDT documented as of this encounter Progress Notes * Jessie Banegas P.T., D.P.T. - 12/30/2024 4:15 PM CST Physical Therapy Outpatient Treatment Note SUBJECTIVE Patient's Name: Margie Younger Referring Provider: Emanuel Garcia M.D. Visit Diagnosis: 1. Pain Low Back Unspecified Payor: MEDICARE / Plan: MEDICARE A AND B / Product Type: Medicare / No data recorded Epic Visit Count: 22 Patient comments: Patient continues to report vertigo symptoms, lightheadedness, dizziness and nausea. She [facility] to [facility]. Patient also be consulting with orthopedics in regards to her neck. OBJECTIVE Pain: No new complaint TREATMENT Treatment today consisted of: Today performed the Lvmae-Fit Total body ergometer at level 2 resistance times 10 minutes. Performed standing hip abduction and standing hip extension with 2 x 10 repetitions on the left lower extremity and 10 repetitions in the right lower extremity. Discontinued due to increasing symptoms of dizziness and lightheadedness as well as nausea. In sitting performed dynamic lumbar stabilization with lower extremity marching with 3 lb cuff weights on the ankles at 2 x 10 repetitions. At that time patient was no longer able to continue with therapy due to increasing vertigo symptoms. Assessment Clinical Impression: Patient continues to be limited by vertigo. Patient does best with seated exercises or supine exercises. Patient will continue to benefit from skilled physical therapy to improvestrength and endurance. Functional Goals and Timeframes: PT Goal #1: Patient will improve bilateral LE strength to 4/5 in order to progress toward PLOF and improve overall gait mechanics PT Goal #1 to be achieved by: 01/30/25 PT Goal #1 Status: Progressing PT Goal #2: Patient will report less than 3/10 pain in low back and RLE in order to improve functional independence with associate professor of kinesiology and activities PT Goal #2 to be [...] with Patient Therapeutic Interventions Therapeutic Exercise (min): 28 min Time Tracking Total Timed Units (min): 28 min Total Treatment Time (min): 28 min UNITY HEALTH COORDINATOR documented in this encounter Plan of Treatment Upcoming Encounters Date Type Department Care Team (Late st Contact Info) Description 01/15/2025 10:30 AM CDT Clinical Support Department of Rehabilitation Services in [address] [phone] Emanuel Garcia M.D. [address] [place] [phone] Penny Hollingsworth P.T., D.P.T. 01/20/2025 10:30 AM CDT Clinical Support Department of Rehabilitation Services in [address] [phone] Emanuel Garcia M.D. [address] [place] [phone] Jessie Banegas P.T., D.P.T. [address] [place] [phone] 01/22/2025 10:30 AM CDT Clinical Support Department of Rehabilitation Services in [address] [phone] Emanuel Garcia M.D. [address] [place] [phone] Penny Hollingsworth P.T., D.P.T. 01/27/2025 10:30 AM CDT Clinical Support Department of Rehabilitation Services in [address] [place] [address] Emanuel Garcia M.D. [address] [place] [phone] Jessie Banegas P.T., D.P.T. [address] [place] [phone] 01/29/2025 10:30 AM CDT Clinical Support Department of Rehabilitation Services in [address] [place] [phone] Emanuel Garcia M.D. [address] [place] [phone] Penny Hollingsworth P.T., D.P.T. 02/03/2025 10:30 AM CDT Clinical Support Department of Rehabilitation Services in [address] [place] [address] Emanuel Garcia M.D. [address] [place] [phone] Jessie Banegas P.T., D.P.T. [address] [place], [place] [address] [phone] 02/05/2025 10:30 AM CDT Clinical Support Department of Rehabilitation Services in [address] [place] [address] Emanuel Garcia M.D. [address] [place] [phone] Penny Hollingsworth P.T., D.P.T. 02/10/2025 10:30 AM CDT Clinical Support Department of Rehabilitation Services in [address] [phone] Emanuel Garcia M.D. [address] [place] [phone] Jessie Banegas P.T., D.P.T. [address] [place] [phone] 02/12/2025 10:30 AM CDT Clinical Support Department of Rehabilitation Services in [address] [phone] Emanuel Garcia M.D. [address] [place] [phone] Penny Hollingsworth P.T., D.P.T. documented as of this encounter Visit Diagnoses Diagnosis Pain Low Back Unspecified documented in this encounter Additional Health Concerns Assessment Noted Time PHQ-9 Depression Total Score: 8 11/28/19 23 7:25 PM COMMUNITY HEALTH COORDINATOR documented as of this encounter Care Teams Cantilever Crane Operator Relationship Specialty Start Date End Date Elsewhere, Pcp PCP - General Internal Medicine 12/12/22 documented as of this encounter
--- OUTSIDE RECORDS SUMMARY | 2025-01-14 06:15 | XMS_ITS | Encounter Summary ---
Author Organization [facility] Address [address] [place] [address] Care Team Providers Care Director Supply Chain Name Role Phone Elsewhere, Pcp Primary Care Provider Unavailabl e Reason for Visit * Physical Therapy (Routine) - Authorized Specialty Diagnoses / Procedures Referred By Shell t Referred To Contact Diagnoses Pain Low Back Unspecified Procedures PT Ongoing treatment Emanuel Garcia M.D. [address] [place] [address] Phone: tel: fax: [facility] Region Referral ID Status Reason Start Date Expiration Date V isits Requested Visits Authorized [id number] Authorized 10/02/2024 10/02/2025 99 99 Encounter Details Date Type Department Care Team (Latest Contact Info) Description 01/13/2025 10:30 AM CDT Clinical Support Department of Rehabilitation Services in [address] [phone] Emanuel Garcia M.D. [address] [place] [phone] Jessie Banegas P.T., D.P.T. [address] [place] [phone] Pain Low Back Unspecified Social History Tobacco [...] week 08/09/2022 How often do you attend [facility] or worship services? Never 08/09/2022 Do you belong to any clubs o r organizations such as synagogue groups, unions, fraternal or athletic groups, or [...] Answer Date Recorded PHQ-2 Score 4 11/28/2022 [facility] - Occupational [...] your living situation today? I have a [facility] place to live 09/21/2023 Education Answer Date Recorded What is the highest level of school you have completed or the highest degree you have received? Associate degree: academic program 08/09/2022 Comments Unknown Sex and Gender Information Value Date Recorded Sex Assigned at Female 08/09/2022 10:14 AM CDT Legal Sex Female 7:02 PM TRUST VAULT CUSTODIAN Gender Identity Female 08/09/2022 10:14 AM CDT Sexual Orientation Straight 08/09/2022 10 :14 AM CDT documented as of this encounter Progress Notes * Jessie Banegas P.T., D.P.T. - 01/13/2025 10:30 AM CDT Physical Therapy Outpatient Treatment Note SUBJECTIVE Patient's Name: Margie Younger Referring Provider: Emanuel Garcia M.D. Visit Diagnosis: 1. Pain Low Back Unspecified Payor: MEDICARE / Plan: MEDICARE A AND B / Product Type: Medicare / No data recorded Epic Visit Count: 26 Patient comments: Patient reports her dizziness is a little better. OBJECTIVE Pain: left knee pain TREATMENT Treatment today consisted of: Patient perform the Onovative-Fit Total body ergometer at level 1 resistance times 10 minutes. We then performed dynamic lumbar stabilization with unsupported sitting for lower extremity knee extension andmarching with 4 lb cuff weights at the ankles at 3 x 10 repetitions each. Performed standing hip abduction 4 lb cuff weights at the ankles cuing on transverse abdominal contraction at 3 x 10 repetitions bilaterally. Step ups x 10 repetitions bilaterally. Assessment Clinical Impression: Patient tolerated the treatment session better today. Dizziness remained controlled. Her strength is gradually improving. Functional Goals and Timeframes: PT Goal #1: Patient will improve bilateral LE strength to 4/5 in order to progress toward PLOF and improve overall gait mechanics PT Goal #1 to be achieved by: 01/30/25 PT Goal #1 Status: Progressing PT Goal #2: Patient will report less than 3/10 pain in low back and RLE in order to improve functional independence with horse rider and activities PT Goal #2 to be [...] with Patient Therapeutic Interventions Therapeutic Exercise (min): 38 min Time Tracking Total Timed Units (min): 38 min Total Treatment Time (min): 38 min documented in this encounter Plan of Treatment Upcoming Encounters Date Type Department Care Team (Late st Contact Info) Description 01/15/2025 10:30 AM CDT Clinical Support Department of Rehabilitation Services in [address] [phone] Emanuel Garcia M.D. [address] [place] [phone] Penny Hollingsworth P.T., D.P.T. 01/20/2025 10:30 AM CDT Clinical Support Department of Rehabilitation Services in [address] [phone] Emanuel Garcia M.D. [address] [place] [phone] Jessie Banegas P.T., D.P.T. [address] [place] [phone] 01/22/2025 10:30 AM CDT Clinical Support Department of Rehabilitation Services in [address] [phone] Emanuel Garcia M.D. [address] [place] [phone] Penny Hollingsworth P.T., D.P.T. 01/27/2025 10:30 AM CDT Clinical Support Department of Rehabilitation Services in [address] [phone] Emanuel Garcia M.D. [address] [place] [phone] Jessie Banegas P.T., D.P.T. [address] [place] [phone] 01/29/2025 10:30 AM CDT Clinical Support Department of Rehabilitation Services in [address] [address] Emanuel Garcia M.D. [address] [place] [phone] Penny Hollingsworth P.T., D.P.T. 02/03/2025 10:30 AM CDT Clinical Support Department of Rehabilitation Services in [address] [phone] Emanuel Garica M.D. [address] [place] [phone] Jessie Banegas P.T., D.P.T. [address] [place], [place] [address] [phone] 02/05/2025 10:30 AM CDT Clinical Support Department of Rehabilitation Services in [address] [place] [address] Emanuel Garcia M.D. [address] [place] [phone] Penny Hollingsworth P.T., D.P.T. 02/10/2025 10:30 AM CDT Clinical Support Department of Rehabilitation Services in [address] [phone] Emanuel Garcia M.D. [address] [place] [phone] Jessie Banegas P.T., D.P.T. [address] [place] [phone] 02/12/2025 10:30 AM CDT Clinical Support Department of Rehabilitation Services in [address] [phone] Emanuel Garcia M.D. [address] [place] [phone] Penny Hollingsworth P.T., D.P.T. documented as of this encounter Visit Diagnoses Diagnosis Pain Low Back Unspecified documented in this encounter Additional Health Concerns Assessment Noted Time PHQ-9 Depression Total Score: 8 11/28/19 23 7:25 PM TRUST VAULT CUSTODIAN documented as of this encounter Care Teams Director Supply Chain Relationship Specialty Start Date End Date Elsewhere, Pcp PCP - General Internal Medicine 12/12/22 documented as of this encounter
--- OUTSIDE RECORDS SUMMARY | 2025-01-14 06:16 | XMS_ITS | Clinical Summary ---
Author Organization [facility] Address [address] [place] [id number] Care Team Providers Care Office Aide Name Role Phone Elsewhere, Pcp Primary Care Provider Unavailabl e Source Comments Patient records contain information from all sites at [facility]. For routine questions regarding patient records, call [phone] during business hours, M-F 8:00 AM - 5:00 PM Central Time. Record requests for emergency care only can be directed to [phone] at any time.[facility] Allergies No known active allergies Medications * This document contains information received from the source organization and may not represent a complete record from that organization. fluticasone propionate (CUTIVATE) 0.005 % ointment Apply 1 Application topically 2 (two) times a day as needed (to ears as directed). 023 Active acetaminophen (TYLENOL) 500 mg tabletIndications :back pain Take 1,000 mg by mouth every 6 (six) hours as needed for pain Indications: backache. Active fluticasone propionate (CUTIVATE) 0.005 % ointment Apply topically 2 (two) times a day NEEDED (to external ears). 60 g 11/02/19 24 1:05 PM INTERRELATED SPECIAL EDUCATION TEACHER 023 Active mupirocin (BACTROBAN) 2 % ointment Use starting 5 days prior to surgery. Apply two times daily to the inside of the nose. 22 g 02/28/20 24 3:16 PM CDT 024 Active enoxaparin (LOVENOX) 80 mg/0.8 mL injection Inject 0.8 mL (80 mg total) under the skin 2 (two) times a day. 4 mL 3 Active acetaminophen (TYLENOL) 325 mg tablet Take 2 tablets (650 mg total) by mouth every 4 (four) hours as needed for pain. 100 tablet Active naloxone (NARCAN) 4 mg/actuation nasal spray Administer one spray into one nostril as needed for opiod overdose. Repeat in other nostril after 2-3 minutes if no or minimal response. 2 each Active traZODone (DESYREL) 50 mg tablet Take 1 tablet (50 mg total) by mouth at bedtime. 30 tablet Active diclofenac sodium (VOLTAREN) 1 % gel Apply 4 g topically 4 (four) times a day. Active HYDROmorphone (DILAUDID) 2 mg tablet Take 2 tablets by mouth every 4 (four) hours as needed for severe pain or score 7-10 of 10. Active ketotifen (ZADITOR) 0.025 % (0.035 %) ophthalmic solution Administer 1 drop into both eyes 2 (two) times a day. For itching Active artificial tear,babmu-rkt-oa y, (GENTEAL TEARS) 0.1-0.3-0.2 % drops ophthalmic solution Administer 1 drop into both eyes 4 (four) times a day as needed (dry eyes). Active sennosides-docusa te sodium (Senna-S) 8.6-50 mg per tablet Take 1 tablet by mouth 2 (two) times a day. Active sennosides-docusa te sodium (SENOKOT-S) 8.6-50 mg per tablet Take 2 tablets by mouth 2 (two) times a day. Active polyethylene glycol (MIRALAX) 17 gram/dose oral powder Take 17 g by mouth daily. Active gabapentin (NEURONTIN) 100 mg capsule Take 100 mg by mouth 2 (two) times a day. Active methocarbamoL (ROBAXIN) 500 mg tablet Take 1,000 mg by mouth 3 (three) times a day as needed for muscle spasms. Active warfarin (JANTOVEN) 5 mg tablet Take 5 mg by mouth. Take 5 mg by mouth daily Coumadin 5 mg Sunday and 7.5 mg on Sunday. Next INR 6/3 to be drawn by model home sales greeter and results to PCP. Active atorvastatin (Lipitor) 40 mg tablet Take 1 tablet (40 mg total) by mouth daily with dinner. 90 tablet 3 01/02/20 25 1:05 PM INTERRELATED SPECIAL EDUCATION TEACHER 024 Active traZODone (DesyreL) 50 mg tablet Take 1 tablet (50 mg total) by mouth at bedtime. 90 tablet 3 11/14/19 25 11:07 AM INTERRELATED SPECIAL EDUCATION TEACHER 024 Active methylPREDNISolon e (MedroL DosePak) 4 mg tablet Take 6 tablets by mouth morning of day 1, then take 5 tablets together on day 2, and complete like this until gone. 21 tablet 06/20/20 24 2:24 PM CDT 024 Active traMADoL (Ultram) 50 mg tablet Take 1 tablet (50 mg total) by mouth every 8 (eight) hours as needed. 20 tablet 07/15/20 24 11:35 AM CDT 024 Active hydrOXYzine (VistariL) 25 mg capsule Take 1 capsule (25 mg total) by mouth 2 (two) times a day if needed for pain. 60 capsule 07/29/20 24 11:12 AM CDT 024 Active levothyroxine 150 mcg tablet Take 1 tablet (150 mcg total) by mouth daily before breakfast. 90 tablet 1 01/02/20 25 1:05 PM INTERRELATED SPECIAL EDUCATION TEACHER 024 Active ondansetron ODT (Zofran-ODT) [address] 1 Tablet (4 mg) on the tongue every 8 hours if needed for Nausea/Vomiting . 30 tablet 1 01/07/20 25 4:56 PM CDT 024 Active citalopram (CeleXA) 40 mg tablet Take 1 Tablet (40 mg) by mouth once daily. 90 tablet 1 01/02/20 25 1:05 PM INTERRELATED SPECIAL EDUCATION TEACHER 024 Active warfarin (Jantoven) 5 mg tablet Take by mouth 10 mg (5 mg x 2) every Suzanne Hope; 7.5 mg (5 mg x 1.5) all other days in the evening OR as directed 150 tablet 09/05/20 24 12:21 PM INTERRELATED SPECIAL EDUCATION TEACHER 024 Active diazePAM (Valium) 5 mg tablet Take 2 tablets (10 mg total) by mouth one hour prior to procedure. May repeat if needed. 8 tablet 09/12/20 24 11:49 AM INTERRELATED SPECIAL EDUCATION TEACHER 024 Active oxyCODONE (Roxicodone) 10 mg IR tablet Take 1 tablet (10 mg total) by mouth 3 (three) times a day as needed for severe breakthrough pain or score 7-10 of 10. Avoid taking within 1-2 hours of buprenorphine. Take buprenorphine first. 30 tablet 12/03/19 25 2:20 PM INTERRELATED SPECIAL EDUCATION TEACHER 025 Active oxyCODONE (Roxicodone) 10 mg IR tablet Take 1 tablet (10 mg total) by mouth 3 (three) times a day as needed for severe breakthrough pain or score 7-10 of 10.Avoid taking within 1-2 hours of buprenorphine. Take buprenorphine first. 42 tablet 11/19/19 25 2:08 PM INTERRELATED SPECIAL EDUCATION TEACHER 025 Active naloxone (Narcan) 4 mg/actuation nasal spray Use as directed as needed for accidental overdose, then call 911. 2 each 1 025 Active buprenorphine-nal oxone (Suboxone) 2-0.5 mg per SL tablet Place 0.5 tablets under the tongue 2 (two) times a day. May increase to 3 (three) times a day if tolerated. 36 tablet 11/19/19 25 2:08 PM INTERRELATED SPECIAL EDUCATION TEACHER 025 Active buprenorphine-nal oxone (Suboxone) 2-0.5 mg per SL tablet Take one tablet sublingually 3 (three) times daily, dosing every 8 hours for chronic pain 84 tablet 12/26/19 25 4:13 PM INTERRELATED SPECIAL EDUCATION TEACHER 025 Active oxyCODONE (Roxicodone) 10 mg IR tablet Take 1 (one) tablet by mouth 3 (three) times daily as needed for severe breakthrough pain rated 7-10/10. Avoid taking within 1-2 hours of buprenorphine. Take buprenorphine first. 45 tablet 12/12/19 25 3:43 PM INTERRELATED SPECIAL EDUCATION TEACHER 025 Active oxyCODONE (Roxicodone) 10 mg IR tablet Take 1 tablet by mouth 3 (three) times daily as needed for severe breakthrough pain rated 7-10/10. Avoid taking within 1-2 hours of buprenorphine. Take buprenorphine first. 45 tablet 12/26/19 25 4:13 PM INTERRELATED SPECIAL EDUCATION TEACHER 025 Active warfarin (Jantoven) 5 mg tablet Take 2 tablets (10 mg) by mouth every e, Sun; take 1.5 tablets (7.5 mg) all other days in the evening OR as directed 150 tablet 12/11/19 25 1:40 PM INTERRELATED SPECIAL EDUCATION TEACHER 025 Active buprenorphine-nal oxone (Suboxone) 2-0.[address] tablet [address] 1 tablet under the tongue 3 (three) times a day. For chronic pain. 84 tablet 025 Active oxyCODONE (Roxicodone) 5 mg immediate release tablet Take 1 tablet every 4-6 hours as needed for severe breakthrough pain rated 7-10/10, max 3 tablets per day, may take one more per day on therapy days, twice per week 49 tablet 025 Active oxyCODONE (Roxicodone) 5 mg immediate release tablet Take 1 tablet by mouth every 4-6 hours as needed for severe breakthrough pain rated 7-10/10, max 3 tablets per day. May take one more per day on therapy days twice per week 49 tablet 01/09/20 25 11:17 AM CDT 025 Active simvastatin (ZOCOR) 20 mg tablet Take 20 mg by mouth at bedtime. 012 2021 Discontinued meloxicam (MOBIC) 7.5 mg tablet Take 1 tablet (7.5 mg total) by mouth daily with food 30 tablet 023 2022 Discontinued(E xternal Provider Cancel) celecoxib (CeleBREX) 100 mg capsule Take 1 capsule (100 mg) by mouth two times daily with meals. 60 capsule 02/04/20 24 2:50 PM CDT 024 2023 Discontinued(E xternal Provider Cancel) cyclobenzaprine (FlexeriL) 5 mg tablet Take 1 tablet (5 mg total) by mouth 2 (two) times a day as needed for muscle spasms. 20 tablet 05/30/20 24 3:55 PM CDT 024 2023 Discontinued(E xternal Provider Cancel) oxyCODONE (Roxicodone) 5 mg immediate release tablet Take 1 Tablet (5 mg) by mouth three times daily. 15 tablet 11/14/19 25 11:07 AM INTERRELATED SPECIAL EDUCATION TEACHER 025 2024 Discontinued(R eorder) Active Problems Problem Noted Date Diagnosed Date Stroke 12/05/2022 Floorleader (Current) Anticoagulant Treatment 04/2023 Stroke Cerebrovascular Accident Personal History 11/29/2022 Overview (11/29/2022): February 2022, R MCA. No residual symptoms. Further evaluation has revealed both elevated phospholipid antibody and a PFO. Patent Foramen Ovale 11/29/2022 Monitoring For Therapeutic Drug Therapy 11/29/19 23 Dermatitis 11/29/2022 Overview (11/29/2022): Intermittent dermatitis of the L external ear. Treats with hydrocortisone ointment as needed. Lupus Anticoagulant Syndrome 08/16/2022 Astigmatism Regular Bilateral 12/23/2020 Hyperopia Bilateral 12/23/2020 Presbyopia 12/23/2020 Presence Of Intraocular Lens 12/23/2020 Morbid Severe Obesity Due To Excess Calories Chronic Kidney Disease (CKD) , Stage 3a Glomerular Filtration Rate (GFR) 45 To 59 07/20/2017 Cataract 06/16/2014 Overactive Bladder 02/26/2012 Insomnia 12/07/2011 Overview (11/29/2022): On trazodone, 50 mg daily at bedtime. Stress Incontinence Female Male 12/07/2011 Depression Major One Episode Partial Remission 0 12/20/2010 Overview (11/29/2022): Zoloft 150 mg- stopped because it wasn't working Effexor 150mg- made her jittery Wellbutrin SR 150mg-stopped not working Currently taking Celexa, 40 mg daily. Polyp Colon Adenomatous Personal History 011 Overview (11/29/2022): Last colonoscopy 06/2021. Next colonoscopy due in 5 years, 06/2026. Hyperlipidemia 12/01/2010 Hypothyroidism 11/06/2002 Resolved Problems Problem Noted Date Diagnosed Date Resolved Date Floorleader (Current) Anticoagulant Treatment 08/16/2022 11/08/2022 Stroke 03/18/2022 11/29/2022 Encounters Date Type Department Care Team Description 01/13/2025 10:30 AM CDT Clinical Support Department of Rehabilitation Services in [address] [phone] Emanuel Garcia M.D. Fogarty, Jennifer L, P.TAkbar, D.P.T. Pain Low Back Unspecified 01/13/2025 10:18 AM CDT - 01/13/2025 11:59 PM CDT Hospital Encounter Department of Laboratory Medicine in [address] [phone] Noemy oK M.D. Hypothyroidism Acquired; Detention (Current) Anticoagulant Treatment; Antiphospholipid Antibody Syndrome (HCC); Stroke (HCC); Patent Foramen Ovale (HCC) Discharge Disposition: Home or Self Care 01/08/2025 10:30 AM CDT Clinical Support Department of Rehabilitation Services in [address] [phone] Emanuel Garcia M.D. Roubal, Katherine E, P.T., D.P.T. Pain Low Back Unspecified 01/06/2025 2:00 PM CDT Clinical Support Department of Rehabilitation Services in [address] [address] Emanuel Garcia M.D. Fogarty, Jennifer L, P.TAkbar, D.P.T. Pain Low Back Unspecified 01/01/2025 1:15 PM INTERRELATED SPECIAL EDUCATION TEACHER Clinical Support Department of Rehabilitation Services in [address] [phone] Emanuel Garcia M.D. Roubal, Katherine E, P.TAkbar, D.P.T. Pain Low Back Unspecified 12/30/2024 4:15 PM INTERRELATED SPECIAL EDUCATION TEACHER Clinical Support Department of Rehabilitation Services in [address] [phone] Emanuel Garcia M.D. Fogarty, Jennifer L, P.T., D.P.T. Pain Low Back Unspecified 12/23/2024 10:30 AM INTERRELATED SPECIAL EDUCATION TEACHER Clinical Support Department of Rehabilitation Services in [address] [phone] Emanuel Garcia M.D. Fogarty, Jennifer L, P.Torri, D.P.T. Pain Low Back Unspecified 12/16/2024 11:16 AM INTERRELATED SPECIAL EDUCATION TEACHER - 12/16/2024 11:59 PM INTERRELATED SPECIAL EDUCATION TEACHER Hospital Encounter Department of Laboratory Medicine in [address] [address] Noemy Ko M.D. Hypothyroidism Acquired; Detention (Current) Anticoagulant Treatment; Antiphospholipid Antibody Syndrome (HCC); Stroke (HCC); Patent Foramen Ovale (HCC); Chronic Kidney Disease (CKD), Stage 3a Glomerular Filtration Rate (GFR) 45 To 59 (HCC) Discharge Disposition: Home or Self Care 12/16/2024 10:30 AM INTERRELATED SPECIAL EDUCATION TEACHER Clinical Support Department of Rehabilitation Services in [address] [phone] Emanuel Garcia M.D. Fogarty, Jennifer L P.T., D.P.T. Pain Low Back Unspecified 12/10/2024 10:42 AM INTERRELATED SPECIAL EDUCATION TEACHER - 12/10/2024 11:59 PM INTERRELATED SPECIAL EDUCATION TEACHER Hospital Encounter Department of Laboratory Medicine in [address] [address] Noemy Ko M.D. Hypothyroidism Acquired; Floorleader (Current) Anticoagulant Treatment; Antiphospholipid Antibody Syndrome (HCC); Stroke (HCC); Patent Foramen Ovale (HCC) Discharge Disposition: Home or Self Care 11/25/2024 2:45 PM INTERRELATED SPECIAL EDUCATION TEACHER Clinical Support Department of Rehabilitation Services in [address] [phone] Emanuel Garcia M.D. Jessie Banegas P.T., D.P.T. Pain Low Back Unspecified 10/24/2024 11:00 AM INTERRELATED SPECIAL EDUCATION TEACHER - 10/24/2024 11:59 PM INTERRELATED SPECIAL EDUCATION TEACHER Hospital Encounter Department of Laboratory Medicine in [address] [phone] Noemy Ko M.D. Hypothyroidism Acquired; Detention (Current) Anticoagulant Treatment; Antiphospholipid Antibody Syndrome (HCC); Stroke (HCC); Patent Foramen Ovale (HCC) Discharge Disposition: Home or Self Care from Last 3 Months Immunizations Immunization Administration Dates Next Due HZV (ZOSTAVAX) 01/04/2010 HepA Adult 01/14/2008 Influenza TIV (IM) 07/11/2018, 7,11/23/2010,2005,08/09/2004 Influenza high dose QV(65 ye ars or older) (PF) 08/16/2022,08/06/2021 Influenza, Quadrivalent, Adj uvanted, Preservative Free 07/28/2020 Influenza, Seasonal, Injectable 11/23/2010,10/04,08/09/2004 Influenza, Unspecified 07/29/2019,2010,10/04/2006,2003 PCV13 04/06/2016 PPSV23 02/11/2014 RZV (SHINGRIX) 05/14/2021 SARS-COV-2 (COVID-19) - PFIZ ER (Discontinued)(12 years or older) 11/19/2021 Tdap 11/23/2021,12/07/2011 influenza trivalent high dos e (HD)(PF) 07/24/2019,07/11/2018,07/29/2015,2013 influenza vaccine quad (FLUZONE/FLUARIX) (6 months and older)(PF) 07/29/2016 Family History Medical History Relation Name Comments Coronary artery disease Father Jacoby Devine st Hyperlipidemia Father Jacoby Fenton Ovarian cancer Mother Deanna Fenton Relation Name Status Comments Father Jacoby Fenton Mother Deanna Fenton Social History Tobacco Use Types Packs/Day Years Used Date Smoking Tobacco: Former Smokeless Tobacco: Never Tobacco Cessation:Counseling Given: Not Answered Alcohol Use Standard Drinks/Week Comments Yes 3 [...] How often do you attend chur or baptist services? Never 08/09/2022 Do you belong to any clubs o r organizations such as yazidi groups, unions, fraternal or athletic groups, or [...] Answer Date Recorded PHQ-2 Score 4 11/28/2022 [facility] of Occupat ional [facility] - Occupational Stress Questionnaire Answer Date Recorded [...] your living situation today? I have a [facility] place to live 09/21/2023 Education Answer Date Recorded What is the highest level of school you have completed or the highest degree you have received? Associate degree: academic program 08/09/2022 Comments Unknown Sex and Gender Information Value Date Recorded Sex Assigned at Female 08/09/2022 10:14 AM CDT Legal Sex Female 7:02 PM INTERRELATED SPECIAL EDUCATION TEACHER Gender Identity Female 08/09/2022 10:14 AM CDT Sexual Orientation Straight 08/09/2022 10 :14 AM CDT Last Filed Vital Signs Vital Sign Reading Time Taken Comments Blood Pressure 127/82 09/22/2024 2:45 PM INTERRELATED SPECIAL EDUCATION TEACHER Pulse 70 09/22/2024 2:45 PM INTERRELATED SPECIAL EDUCATION TEACHER Temperature 36.8 C (98.2 F) 09/22/2024 1:48 PM INTERRELATED SPECIAL EDUCATION TEACHER Respiratory Rate 16 09/22/2024 1:52 PM INTERRELATED SPECIAL EDUCATION TEACHER Oxygen Saturation 94% 09/22/2024 2:45 PM INTERRELATED SPECIAL EDUCATION TEACHER Inhaled Oxygen Concentration - - Weight 105 kg (231 lb 0.7 oz) 09/22/2024 1:45 PM INTERRELATED SPECIAL EDUCATION TEACHER Height 160 cm (5' 3) 04/11/2024 10:36 PM CDT Body Mass Index 40.93 04/11/2024 10:36 PM CDT Plan of Treatment Upcoming Encounters Date Type Department Care Team (Late st Contact Info) Description 01/15/2025 10:30 AM CDT Clinical Support Department of Rehabilitation Services in [address] [phone] Emanuel Garcia M.D. [address] [place] [phone] Penny Hollingsworth P.TAkbar, D.P.T. 01/20/2025 10:30 AM CDT Clinical Support Department of Rehabilitation Services in [address] [phone] Emanuel Garcia M.D. [address] [place] [phone] Jessie Banegas P.Fidel., D.P.T. [address] [place] [phone] 01/22/2025 10:30 AM CDT Clinical Support Department of Rehabilitation Services in [address] [place] [address] Emanuel Garcia M.D. [address] [place] [phone] Penny Hollingsworth P.T., D.P.T. 01/27/2025 10:30 AM CDT Clinical Support Department of Rehabilitation Services in [address] [place] [address] Emanuel Garcia M.D. [address] [place] [phone] Jessie Banegas P.T., D.P.T. [address] [place] [address] [place] [phone] 01/29/2025 10:30 AM CDT Clinical Support Department of Rehabilitation Services in [address] [place] [place] [address] Emanuel Garcia M.D. [address] [place] [phone] Penny Hollingsworth P.T., D.P.T. 02/03/2025 10:30 AM CDT Clinical Support Department of Rehabilitation Services in [address] [place] [address] Emanuel Garcia M.D. [address] [place] [phone] Jessie Banegas P.T., D.P.T. [address] [place] [phone] 02/05/2025 10:30 AM CDT Clinical Support Department of Rehabilitation Services in [address] [phone] Emanuel Garcia M.D. [address] [place] [phone] Penny Hollingsworth P.T., D.P.T. 02/10/2025 10:30 AM CDT Clinical Support Department of Rehabilitation Services in [address] [phone] Emanuel Garcia M.D. [address] [place] [phone] Jessie Banegas P.T., D.P.T. [address] [place] [phone] 02/12/2025 10:30 AM CDT Clinical Support Department of Rehabilitation Services in [address] [phone] Emanuel Garcia M.D. [address] [place] [phone] Penny Hollingsworth P.T., D.P.T. Health Maintenance Due Date Last Done Comments CT Colonography 1950 Cologuard 1950 Generalized Anxiety (CHUY-7) 1950 Hepatitis C Screening 1950 Office Visit for Blood Pressure Check / Re-check 1950 Depression Monitoring (PHQ-9) 03/28/2023 11/28/2022 Mammogram 12/12/2023 12/12/2022, 11/29, 10/13/2019, Additional history exists Controlled Substance Agreement 07/17/2024 Controlled Substance Monitoring (PHQ-9) 07/17/2024 11/28/2022 Controlled Substance Monitoring (UDS) 07/17/2024 Opioid Risk Tool (ORT) 07/17/2024 PEG assessment for Opioid therapy 07/17/2024 Depression Monitoring (PHQ-9 for quality tracking) 10/29/2024 Fall Risk Screen (Annual) 10/29/2024 COVID-19 Vaccine ( season) 2025 08/17/2024, 08/22/2023, 08/16/2022, Additional history exists Thyroid Stimulating Hormone (TSH) test for thyroid function 07/29/2025 07/29/2024, 04/25/2024, 03/13/2024, Additional history exists Colonoscopy 07/01/2026 07/01/2021 Colorectal Cancer Surveillance 07/01/2026 Fasting Glucose for Diabetes Screening 12/16/2027 12/16/2024, 09/22/2024, 04/25/2024, Additional history exists Lipid (Cholesterol) Screening 04/25/2029 04/25/2024, 06/29/2023, 04/23/2023, Additional history exists DTaP,Tdap,and Td Vaccines (3 - Td or Tdap) 11/23/2031 11/23/2021, 12/07/2011 Pneumococcal vaccine (50+ years) Completed 04/06/2016, 02/11/2014 Bone Density Scan (Osteoporosis Screen) Discontinued 12/12/2022 RSV vaccine - (32-36 weeks) or 60+ years Completed 08/22/2023 Zoster Vaccines Completed 08/29/2023, 04/28, 01/04/2010 Influenza Vaccine Completed 08/17/2024, , 08/16/2022, Additional history exists IPV Vaccines Aged Out No longer eligi ble based on patient's age to complete this topic Procedures Procedure Name Priority Date/Time Associated Diagnosis Comments PROTHROMBIN TIME (PT), P Routine 01/13/2025 11:14 AM CDT Hypothyroidism Acquired Floorleader (Current) Anticoagulant Treatment Antiphospholipid Antibody Syndrome (HCC) Stroke (HCC) Patent Foramen Ovale (HCC) BASIC METABOLIC PANEL, S/P Routine 12/16/2024 11:23 AM INTERRELATED SPECIAL EDUCATION TEACHER Chronic Kidney Disease (CKD), Stage 3a Glomerular Filtration Rate (GFR) 45 To 59 (HCC) PROTHROMBIN TIME (PT), P Routine 12/16/2024 11:23 AM INTERRELATED SPECIAL EDUCATION TEACHER Hypothyroidism Acquired Floorleader (Current) Anticoagulant Treatment Antiphospholipid Antibody Syndrome (HCC) Stroke (HCC) Patent Foramen Ovale (HCC) PROTHROMBIN TIME (PT), P Routine 12/10/2024 11:03 AM INTERRELATED SPECIAL EDUCATION TEACHER Hypothyroidism Acquired Detention (Current) Anticoagulant Treatment Antiphospholipid Antibody Syndrome (HCC) Stroke (HCC) Patent Foramen Ovale (HCC) PROTHROMBIN TIME (PT), P Routine 10/24/2024 12:16 PM INTERRELATED SPECIAL EDUCATION TEACHER Hypothyroidism Acquired Floorleader (Current) Anticoagulant Treatment Antiphospholipid Antibody Syndrome (HCC) Stroke (HCC) Patent Foramen Ovale (HCC) THYROID-STIMULATING HORMONE-SENSITIVE (S-TSH) Routine 07/29/2024 11:02 AM CDT Hypothyroidism Acquired LIPID PANEL, S Routine 06/29/2023 9:32 AM CDT Stroke (HCC) Stroke Cerebrovascular Accident Personal History BI BREAST SCREENING BILATERAL WITH TOMOSYNTHESIS RAD - Routine (most inpatients and all outpatients) 12/12/2022 9:05 AM INTERRELATED SPECIAL EDUCATION TEACHER Screening Mammogram Breast Cancer from Last 3 Months or Most Recently Relevant to Health Maintenance Results * (ABNORMAL) Prothrombin Time (PT) (01/13/2025 11:14 AM CDT) Only the most recent of4 resultswithin the time period is included. Prothrombin Time, P 19.0(H) 9.4 - 12.5 sec 01/13/2025 11:30 AM CDT CNFL INR 1.6 0.9 - 1.1 01/13/2025 11:30 AM CDT CNFL Comment: ----ADDITIONAL INFORMATION---- Standard intensity warfarin therapeutic range: 2.0 to 3.0 High intensity warfarin therapeutic range: 2.5 to 3.5 Blood (Blood, Venous) 01/13/2025 11:14 AM CDT 01/13/2025 11:21 AM CDT us Noemy Ko M.D. LAB BLOOD ADD-ON Final Result [facility] [address] [place] [address], [facility] CNFL [facility] [place] [address] * (ABNORMAL) Basic Metabolic Panel (12/16/2024 11:23 AM INTERRELATED SPECIAL EDUCATION TEACHER) Potassium, P 4.9 3.6 - 5.2 mmol/L 12/16/2024 11:50 AM INTERRELATED SPECIAL EDUCATION TEACHER CNFL Sodium, P 142 135 - 145 mmol/L 12/16/2024 11:50 AM INTERRELATED SPECIAL EDUCATION TEACHER CNFL Chloride, P 106 98 - 107 mmol/L 12/16/2024 11:50 AM INTERRELATED SPECIAL EDUCATION TEACHER CNFL Bicarbonate, P 28 22 - 29 mmol/L 12/16/2024 11:50 AM INTERRELATED SPECIAL EDUCATION TEACHER CNFL Anion Gap, P 8 7 - 15 12/16/2024 11:50 AM INTERRELATED SPECIAL EDUCATION TEACHER CNFL BUN (Blood Urea Nitrogen), P 18 6 - 21 mg/dL 12/16/2024 11:50 AM INTERRELATED SPECIAL EDUCATION TEACHER CNFL Creatinine 1.05(H) 0.59 - 1.04 mg/dL 12/16/2024 11:50 AM INTERRELATED SPECIAL EDUCATION TEACHER CNFL Estimated GFR (eGFR) 55(L) >=60 mL/min/BSA 12/16/2024 11:50 AM INTERRELATED SPECIAL EDUCATION TEACHER CNFL Comment: Estimated GFR calculated using the 2020 CKD_EPI creatinine equation. Calcium, Total, P 8.9 8.8 - 10.2 mg/dL 12/16/2024 11:50 AM INTERRELATED SPECIAL EDUCATION TEACHER CNFL Glucose, P 84 70 - 140 mg/dL 12/16/2024 11:50 AM INTERRELATED SPECIAL EDUCATION TEACHER CNFL Blood (Blood, Venous) 12/16/2024 11:23 AM INTERRELATED SPECIAL EDUCATION TEACHER 12/16/2024 11:24 AM INTERRELATED SPECIAL EDUCATION TEACHER us Noemy Ko M.D. LAB BLOOD ADD-ON Final Result Performing Organization Address [facility]/ZIP Co de Phone Number [facility] [address] [place] [address], [place] [facility] in [address] [address] * (ABNORMAL) S-TSH (Thyroid-Stimulating Hormone - Sensitive) (07/29/2024 11:02 AM CDT) TSH, Sensitive 7.0(H) 0.3 - 4.2 mIU/L 07/29/2024 11:43 AM CDT [place] Blood (Blood, Venous) 07/29/2024 11:02 AM CDT 07/29/2024 11:07 AM CDT us Noemy oK M.D. LAB BLOOD ADD-ON Final Result Performing Organization Address [facility]/ZIP Co de Phone Number [facility] [address] [place] [address], [place] [address] [address] * Lipid Panel (06/29/2023 9:32 AM CDT) Triglycerides 75 mg/dL 06/29/2023 10:03 AM CDT FL Comment: ----REFERENCE VALUE---- Normal: <150 mg/dL Borderline High: 150-199 mg/dL High: 200-499 mg/dL Very High: > or =500 mg/dL Cholesterol, Total 159 mg/dL 2022 10:03 AM CDT [place] Comment: ----REFERENCE VALUE---- Desirable: < 200 mg/dL Borderline High: 200 - 239 mg/dL High: > or = 240 mg/dL Cholesterol, LDL, Calculated 88 mg/dL 06/29/2023 10:03 AM CDT CNFL Comment: ----REFERENCE VALUE---- Desirable: <100 mg/dL Above Desirable: 100-129 mg/dL Borderline High: 130-159 mg/dL High: 160-189 mg/dL Very High: >=190 mg/dL ----ADDITIONAL INFORMATION---- LDL cholesterol calculated using the Higgins/NIH equation. Cholesterol, HDL 57 >=50 mg/dL 06/29/20 10:03 AM CDT CNFL Cholesterol, Non-HDL, Calculated 102 mg/dL 06/29/2023 10:03 AM CDT CNFL Comment: ----REFERENCE VALUE---- Desirable: <130 mg/dL Above Desirable: 130-159 mg/dL Borderline High: 160-189 mg/dL High: 190-219 mg/dL Very High: > or =220 mg/dL Fasting (8 HR or more) No 06/29/2023 9:37 AM CDT CNFL Blood (Blood, Venous) 06/29/2023 9:32 AM CDT 06/29/2023 9:37 AM CDT us Nhung Bailey M.D. LAB BLOOD ADD-ON Final Res ult Performing Organization Address City/State/[facility] Co de Phone Number [facility] [address] [place] [address], [facility] CNFL [facility] [place] [address] * BI Breast Screening Bilateral with Tomosynthesis (12/12/2022 9:05 AM INTERRELATED SPECIAL EDUCATION TEACHER) Anatomical Region Laterality Modality Breast, Breast Imaging RST L OS, Breast Imaging ARZ LOS, Breast Imaging FLA LOS Bilateral Mammography 12/21/2022 12:0 4 PM INTERRELATED SPECIAL EDUCATION TEACHER Impressions 12/21/2022 12:12 PM INTERRELATED SPECIAL EDUCATION TEACHER Negative. RECOMMENDATION: Annual Screening Mammogram ASSESSMENT: BI-RADS: 1: Negative. Narrative 12/21/2022 12:12 PM INTERRELATED SPECIAL EDUCATION TEACHER EXAM: BI BREAST SCREENING BILATERAL WITH TOMOSYNTHESIS Current study was evaluated with a Computer Aided Detection (CAD) system. INDICATION: Screening mammogram. COMPARISON: Prior exam(s) were available and reviewed for comparison. DENSITY: a. The breast(s) are almost entirely fatty. FINDINGS: No mammographic findings of malignancy. Procedure Note Katlin Pink M.D. - 12/21/2022 EXAM: BI BREAST SCREENING BILATERAL WITH TOMOSYNTHESIS Current study was evaluated with a Computer Aided Detection (CAD) system. INDICATION: Screening mammogram. COMPARISON: Prior exam(s) were available and reviewed for comparison. DENSITY: a. The breast(s) are almost entirely fatty. FINDINGS: No mammographic findings of malignancy. IMPRESSION: Negative. RECOMMENDATION: Annual Screening Mammogram ASSESSMENT: BI-RADS: 1: Negative. Francesca Elias M.D. IMG BI PROCEDURES Final Re sult from Last 3 Months or Most Recently Relevant to Health Maintenance Insurance [facility] MEDICARE Advance Directives For more information, please contact: [phone] * Full Code (Latest Code Status on File) Date Activated Date Inactivated Comments 03/18/2022 9:09 PM 03/19/2022 9:37 PM Question Answer Comments Full Code: Discussed Care Teams Office Aide Relationship Specialty Start Date End Date Elsewhere, Pcp PCP - General Internal Medicine 12/12/22
--- OUTSIDE RECORDS SUMMARY | 2025-01-14 06:16 | XMS_ITS | Encounter Summary ---
Author Organization [place] Address [address] [place] [address]. [place] [address] Care Team Providers Care Project Construction Assistant Manager Name Role Phone Kareem Gomez Primary Care Provid er Wilfredo Mccullough MD Unavailable Woo Agustin MD Unavailable Mikaela Gracia APRN HOMICIDE SQUAD CAPTAIN Unavailable +1- [facility] Unavailable Mikaela Gracia APRN HOMICIDE SQUAD CAPTAIN Unavailable [phone] Encounter Details Date Type Department Care Team (Late st Contact Info) Description 12/08/2013 Office Visit-[facility] [address] [place] [phone] Artemio Marcum MD [facility] [address] [place] [address] Social History Tobacco Use Types Packs/Day Years Used Date Smoking Tobacco: Former Smokeless Tobacco: Never Alcohol Use Standard Drinks/Week Comments Yes 0 (1 standard drink = 0.6 oz pur e alcohol) Rare ice cold beer Comments No Sex and Gender Information Value Date Recorded Sex Assigned at Not on file Legal Sex Female 3:10 AM TIME STUDY 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 DATE: 12/08/2013 MARGIE YOUNGER DATE OF : 1950 AGE: [age] years old Referring Physician: KAREEM HUA Referring Clinic: [facility] CURRENT DIAGNOSES 1. - Hypercholesterolemia, 272.0 2. Family History-Ischemic Heart Disease, V17.3 3. - Chest Pain Precordial, 786.51 ALLERGIES NKDA MEDICATIONS (prior to changes made today) 1. Aspirin Low Dose 81 mg tablet,delayed release (DR/EC), 1 p.o. daily 2. Celexa 40 mg tablet, 1 p.o. daily 3. levothyroxine 125 mcg tablet, 1 p.o. daily 4. oxybutynin chloride 5 mg tablet, 1 p.o. twice daily 5. simvastatin 40 mg tablet, 1 p.o. daily 6. trazodone 50 mg tablet, 1 p.o. PRN as Directed CHIEF COMPLAINTS HISTORY OF PRESENT ILLNESS I saw Ms. Yuonger in clinic today. I took care of her father for quite some time. He was a volunteerin the hospital who worked until he was 89. She tells me he of complications after shoulder surgery. I followed him for his cardiac problems. He was a model patient always exercising, eating right and obviously he did well for many many years. Margie comes to see me because she is concerned about her heart health. She states she does get chest discomfort, chest pressure. These usually come on at periods of rest. She can get diaphoresis with this. She states she gets palpitations. She wonders whether she is having a panic attack. She denies having any exertional chest, arm, neck, jaw or shoulder discomfort. She does not exercise that much because she had a right total knee replacement in August 2013. She states she is under stress. She lives with her daughter and son-in-law. They have four kids they have a teenager that is 15 that has Aspergers. She states by nature she is a worrier and she states instead of waking up in the morning and thinking pleasant thoughts she wakes up in the morning every day and is worried and anxious and thinks about things. She states it took her three tries to actu ally get her knee surgery done because she kept backing out of it. Cardiac risk factors include her family history although her father did not have heart problems until quite late in life. She has hypercholesterolemia for which she is already on medications. Blood pressure is very well controlled. She does not have diabetes mellitus. She clearly has obesity. PAST HISTORY Past Medical Illnesses: hypercholesterolemia, hypothyroidism, depression Past Cardiac Illnesses: Family Hx ischemia heart disease Surgeries/Procedures - General: cholecystectomy (Laproscopic), hysterectomy-total, knee replacement-right LVEF not documented FAMILY HISTORY: Father - Age 90, bi pass/high chol/ from complication; Mother - Age 75, paraneoplastic ceebellum degeneration; CARDIAC RISK FACTORS Tobacco Abuse: negative; Family History of Heart Disease: positive male<GT>55 y/o; Hyperlipidemia: positive; Hypertension: negative; Diabetes Mellitus: negative; Prior History of Heart Disease:negative; Obesity:positive; Sedentary Life Style:positive; Age:positive; Menopausal:positive ; LDL Goal <LT> 100 SOCIAL HISTORY Alcohol Use - drinks occasionally; Smoking - smoked a couple years age [age] three ciggs per day ifthat/socially; Diet - caffeine use-1-2 per day; Exercise - no regular exercise; Occupation - retired; Residence - lives with children and lives with male partner; REVIEW OF SYSTEMS GENERAL strong fam hx heart disease/dad was a pt of SB, hx of bradycardia/ekg done INTEGUMENTARY denies any change in hair or nails, rashes, or skin lesions. EYES no blurred vision, eye pain, or discharge. EARS, NOSE, THROAT, MOUTH denies any hearing loss, epistaxis, hoarseness or difficulty speaking. RESPIRATORY dyspnea with exertion CARDIOVASCULAR chest discomfort, squeezing, edema, comes and goes mostly in the summer ABDOMINAL denies ulcer disease, hematochezia or melena. MUSCULOSKELETAL history of generalized arthritis, chronic back pain NEUROLOGICAL denies any history of recurrent strokes, headaches, TIA, or seizure disorder. PSYCHIATRIC denies any history of depression, substance abuse or change in cognitive functions. ENDOCRINE denies any history of thyroid disease or diabetes mellitus. HEMATOLOGICAL/IMMUNOLOGIC denies any food allergies, seasonal allergies, bleeding disorders. PHYSICAL EXAMINATION VITAL SIGNS: Blood Pressure: 114/64Sitting, Left arm, regular cuff Pulse- 68.00/min. Weight- 218.00 lbs. Height- 64 BMI Measurement: 37 CONSTITUTIONAL cooperative, alert and oriented,well developed, well nourished, in no acute distress., moderately obese SKIN warm and dry to touch, no apparent skin lesions, or masses noted. HEAD normocephalic, atraumatic EYES Pupils equal and round, conjunctivae and lids unremarkable, sclera white, no xanthalasma ENT no pallor or cyanosis, dentition good NECK carotid pulses are full and equal bilaterally, JVP normal, no carotid bruit, no thyromegaly CHEST normal symmetry, no tenderness to palpation, normal respiratory excursion, no intercostal retraction, no use of accessory muscles, clear to auscultation and percussion. CARDIAC regular rhythm, S1 normal, S2 normal, No S3 or S4, Apical impulse not displaced, no murmurs, gallops or rubs detected. ABDOMEN moderately obese PERIPHERAL PULSES pulses full and equal in all extremities, no bruits auscultated. EXTREMITIES & BACK no deformities, clubbing, cyanosis, erythema or edema observed. There are no spinal abnormalities noted. Normal muscle strength and tone. NEUROLOGICAL no gross motor deficits noted, affect appropriate, oriented to time, person and place. MEDICATIONS UPDATED/STARTED TODAY: Aspirin Low Dose 81 mg tablet,delayed release (DR/EC), 1 p.o. daily, #30 (Thirty) Celexa 40 mg tablet, 1 p.o. daily, #0 (Zero) levothyroxine 125 mcg tablet, 1 p.o. daily, #0 (Zero) oxybutynin chloride 5 mg tablet, 1 p.o. twice daily, #0 (Zero) simvastatin 40 mg tablet, 1 p.o. daily, #0 (Zero) trazodone 50 mg tablet, 1 p.o. PRN as Directed, #0 (Zero) MEDICATIONS REFILLED/STOPPED TODAY: [place] Aspirin 325 mg tablet 1 p.o. daily #0 (Zero) Physician Order and Unisom 25 mg tablet 1 p.o. PRN as Directed #0 (Zero) Physician Order ASSESSMENT AND PLAN: 1. Margie has quite atypical chest pain that I think is more consistent with stress and anxiety. We talked about the fact that it is not exertional. She has no exertional symptoms. She did have a stress test in 2008. She did not achieve her target heart rate but it appeared to be negative for ischemia. I did offer her to do another stress test although at this time we have decided that her chestpain syndrome is atypical enough that I do not think a stress test is warranted. 2. I have congratulated her on taking her aspirin although I told her she can take a baby dose aspirin, 325 is not necessary. 3. I do not have a fasting lipid profile to comment on but I would probably aim to get her LDL at least below 100 given her family history. 4. I emphasized the importance of a regular exerciseregimen and a healthy diet predominantly a Mediterranean style diet and weight loss. I think all ofthese things will help her handle her stress also help her in the long-term for her cardiovascular health, treatment of her cholesterol and overall fitness levels. After our discussion we decided we do not need any further testing and I do not need to follow her on a regular basis but would be gladto see her back on a PRN basis although I emphasized to her it is actually vitally important that she does exercise, change her diet and lose some weight. Thank you for allowing me to participate in her care. Artemio Marcum M.D. documented in this encounter Plan of Treatment Not on file documented as of this encounter Visit Diagnoses Not on filedocumented in this encounter Additional Health Concerns Infection Onset Date Last Indicated Resolved Time Rule Out C-difficile 03/29/2024 03/29/2024 024 8:52 AM CDT documented as of this encounter Care Teams Project Construction Assistant Manager Relationship Specialty Start Date End Date Lomeli Kareem Guido PCP - General 06/17/13 Wilfredo Mccullough MD 9 [facility], [place] [address] Assigned Neuroscience Provider 01/11/24 11/19/24 Woo Agustin MD [address] [address] Neurology 01/17/24 Mikaela Gracia APRN HOMICIDE SQUAD CAPTAIN 1700 [place] [address] Nurse Practitioner Geriatric Medicine 03/12/24 03/29/[address] [phone] 03/12/24 03/29/24 Mikaela Gracia APRN HOMICIDE SQUAD CAPTAIN [address] [place] [address] Assigned Pain Medication Provider 03/20/24 10/19/24 documented as of this encounter
--- OUTSIDE RECORDS SUMMARY | 2025-01-14 06:16 | XMS_ITS | Encounter Summary ---
Author Organization [place] Address [address] [place] [address] Care Team Providers Care Hammer Smith Name Role Phone Chichi Esposito MD Primary Care Provide r Noemy Gomez Primary Care Provid er Wilfredo Mccullough MD Unavailable Woo Agustin MD Unavailable Mikalea Gracia APRN FLAME PLANER Unavailable +1 [facility] Unavailable Mikaela Gracia APRN FLAME PLANER Unavailable +[phone] Encounter Details Date Type Department Care Team (Late st Contact Info) Description 08/29/2011 [facility] Medical Advice [address] [place] [address] [place] Social History Tobacco Use Types Packs/Day Years Used Date Smoking Tobacco: Former Smokeless Tobacco: Never Alcohol Use Standard Drinks/Week Comments Yes 0 (1 standard drink = 0.6 oz pur e alcohol) Rare ice cold beer Comments No Sex and Gender Information Value Date Recorded Sex Assigned at Not on file Legal Sex Female 3:10 AM PVC LOADER Gender Identity Not on file Sexual Orientation Not on file documented as of this encounter Plan of Treatment Not on file documented as of this encounter Visit Diagnoses Not on filedocumented in this encounter Additional Health Concerns Infection Onset Date Last Indicated Resolved Time Rule Out C-difficile 03/29/2024 03/29/2024 024 8:52 AM CDT documented as of this encounter Care Teams Hammer Smith Relationship Specialty Start Date End Date Chichi Esposito MD PCP - General Pediatrics 11/23/10 06/16/13 Noemy Gomez PCP - General 06/17/13 Wilfredo Mccullough MD 9 [facility] [address] Assigned Neuroscience Provider 01/11/24 11/19/24 Woo Agustin MD [address] [facility] [place] [address] Neurology 01/17/24 Mikaela Gracia APRN FLAME PLANER 17[address] [place] [address] Nurse Practitioner Geriatric Medicine 03/12/24 03/29/24 [facility], [address] [phone] 03/12/24 03/29/24 Mikaela Gracia APRN FLAME PLANER [address] [place] [address] Assigned Pain Medication Provider 03/20/24 10/19/24 documented as of this encounter
--- OUTSIDE RECORDS SUMMARY | 2025-01-14 06:16 | XMS_ITS | Encounter Summary ---
Author Organization [place] Address [address] [place] [address] Care Team Providers Care Rn Psych Name Role Phone Chichi Esposito MD Primary Care Provide r Noemy Gomez Primary Care Provid er Wilfredo Mccullough MD Unavailable Woo Agustin MD Unavailable Mikaela Gracia APRN REHABILITATION MEDICINE PHYSICIAN Unavailable +1 [facility] Unavailable Mikaela Gracia APRN REHABILITATION MEDICINE PHYSICIAN Unavailable +11-03 Encounter Details Date Type Department Care Team (Late st Contact Info) Description 03/30/2011 [facility] Medical Advice [address] [place] [address] [place] Social History Tobacco Use Types Packs/Day Years Used Date Smoking Tobacco: Former Smokeless Tobacco: Never Alcohol Use Standard Drinks/Week Comments Yes 0 (1 standard drink = 0.6 oz pur e alcohol) Rare ice cold beer Comments No Sex and Gender Information Value Date Recorded Sex Assigned at Not on file Legal Sex Female 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 Gender Identity Not on file Sexual Orientation Not on file documented as of this encounter Plan of Treatment Not on file documented as of this encounter Visit Diagnoses Not on filedocumented in this encounter Additional Health Concerns Infection Onset Date Last Indicated Resolved Time Rule Out C-difficile 03/29/2024 03/29/2024 024 8:52 AM CDT documented as of this encounter Care Teams Rn Psych Relationship Specialty Start Date End Date Chichi Esposito MD PCP - General Pediatrics 11/23/10 06/16/13 Noemy Gomez PCP - General 06/17/13 Wilfredo Mccullough MD 9 [facility], [place] [address] Assigned Neuroscience Provider 01/11/24 11/19/24 Woo Agustin MD [address] [facility] [address] Neurology 01/17/24 Mikaela Gracia APRN REHABILITATION MEDICINE PHYSICIAN 1700 [place] [address] Nurse Practitioner Geriatric Medicine 03/12/24 03/29/24 [facility], [address] [phone] 03/12/24 03/29/24 Mikaela Gracia APRN REHABILITATION MEDICINE PHYSICIAN [address] [place] [address] Assigned Pain Medication Provider 03/20/24 10/19/24 documented as of this encounter
--- OUTSIDE RECORDS SUMMARY | 2025-01-14 06:16 | XMS_ITS | Encounter Summary ---
Author Organization [place] Address [address] [place] [address] Care Team Providers Care Automotive Design Drafter Name Role Phone Chichi Esposito MD Primary Care Provide r Noemy Gomez Primary Care Provid er Wilfredo Mccullough MD Unavailable Woo Agustin MD Unavailable Mikaela Gracia APRN BACK TENDER PAPER MACHINE Unavailable +1 [facility] Unavailable Mikaela Gracia APRN BACK TENDER PAPER MACHINE Unavailable +11-03 Encounter Details Date Type Department Care Team (Late st Contact Info) Description 02/14/2013 [facility] Medical Advice [address] [place] [address] Salina Strattno Social History Tobacco Use Types Packs/Day Years Used Date Smoking Tobacco: Former Smokeless Tobacco: Never Alcohol Use Standard Drinks/Week Comments Yes 0 (1 standard drink = 0.6 oz pur e alcohol) Rare ice cold beer Comments No Sex and Gender Information Value Date Recorded Sex Assigned at Not on file Legal Sex Female 3: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 Gender Identity Not on file Sexual Orientation Not on file documented as of this encounter Plan of Treatment Not on file documented as of this encounter Visit Diagnoses Not on filedocumented in this encounter Additional Health Concerns Infection Onset Date Last Indicated Resolved Time Rule Out C-difficile 03/29/2024 03/29/2024 024 8:52 AM CDT documented as of this encounter Care Teams Automotive Design Drafter Relationship Specialty Start Date End Date Chichi Esposito MD PCP - General Pediatrics 11/23/10 06/16/13 Noemy Gomez PCP - General 06/17/13 Wilfredo Mccullough MD 9 [facility] [address] Assigned Neuroscience Provider 01/11/24 11/19/24 Woo Agustin MD [address] [place] [address] Neurology 01/17/24 Mikaela Gracia APRN BACK TENDER PAPER MACHINE 1700 [place] [address] Nurse Practitioner Geriatric Medicine 03/12/24 03/29/24 [facility], [address] [phone] 03/12/24 03/29/24 Mikaela Gracia APRN BACK TENDER PAPER MACHINE [address] [place] [address] Assigned Pain Medication Provider 03/20/24 10/19/24 documented as of this encounter
--- OUTSIDE RECORDS SUMMARY | 2025-01-14 06:16 | XMS_ITS | Encounter Summary ---
Author Organization [place] Address [address] [place] [address] Care Team Providers Care Filter Tank Tender Helper Head Name Role Phone Chichi Esposito MD Primary Care Provide r Noemy Gomez Primary Care Provid er Wilfredo Mccullough MD Unavailable Woo Agustin MD Unavailable Mikaela Gracia APRN MANAGER SOCIAL RESPONSIBILITY Unavailable +1 [facility] Unavailable Mikaela Gracia APRN MANAGER SOCIAL RESPONSIBILITY Unavailable +11-03 Encounter Details Date Type Department Care Team (Late st Contact Info) Description 08/24/2011 [facility] Medical Advice [address] [place] [address] [place] Strat[place] Social History Tobacco Use Types Packs/Day Years Used Date Smoking Tobacco: Former Smokeless Tobacco: Never Alcohol Use Standard Drinks/Week Comments Yes 0 (1 standard drink = 0.6 oz pur e alcohol) Rare ice cold beer Comments No Sex and Gender Information Value Date Recorded Sex Assigned at Not on file Legal Sex Female 3:10 AM PRODUCTION OPERATOR Gender Identity Not on file Sexual Orientation Not on file documented as of this encounter Plan of Treatment Not on file documented as of this encounter Visit Diagnoses Not on filedocumented in this encounter Additional Health Concerns Infection Onset Date Last Indicated Resolved Time Rule Out C-difficile 03/29/2024 03/29/2024 024 8:52 AM CDT documented as of this encounter Care Teams Filter Tank Tender Helper Head Relationship Specialty Start Date End Date Chichi Esposito MD PCP - General Pediatrics 11/23/10 06/16/13 Noemy Gomez PCP - General 06/17/13 Wilfredo Mccullough MD 9 [facility] [address] Assigned Neuroscience Provider 01/11/24 11/19/24 Woo Agustin MD [address] [facility] [place] [address] Neurology 01/17/24 Mikaela Gracia APRN MANAGER SOCIAL RESPONSIBILITY 1700 [place] [address] Nurse Practitioner Geriatric Medicine 03/12/24 03/29/24 [facility], [address] [phone] 03/12/24 03/29/24 Mikaela Gracia APRN MANAGER SOCIAL RESPONSIBILITY [address] [place] [address] Assigned Pain Medication Provider 03/20/24 10/19/24 documented as of this encounter
--- OUTSIDE RECORDS SUMMARY | 2025-01-14 06:16 | XMS_ITS | Clinical Summary ---
Author Organization [facility] Address [address] [place] [id number] Care Team Providers Care Bilingual Loan Processor Name Role Phone Noemy Ko MD Primary Care Pro vider Zackary Crews MD Unavailable [phone] Abad Kwan MD Unavailable [phone] Allergies No known active allergies Medications fluticasone 0.005% (CUTIVATE) 0.005 % ointmentIndications:Ron matitis Apply topically to affected area(s) two times daily. NEEDED to external ears 60 g 10/26/20 23 Active naloxone (NARCAN) 4 mg/actuation nasal spray Inhale into affected nostril(s). 03/27/20 24 Active polyethylene glycoL (MIRALAX) 17 gram/scoop powder Mix 17 g in liquid then take by mouth. 03/27/20 24 Active sennosides (SENNA LAX ORAL) Take by mouth. Active docusate sodium (COLACE ORAL) Take by mouth. Active atorvastatin (LIPITOR) 40 mg tabletIndications:Pure hypercholesterolemia Take 1 Tablet (40 mg) by mouth once daily with evening meal. 90 Tablet 3 04/25/20 24 Active traZODone (DESYREL) 50 mg tabletIndications:Insom margie, unspecified type Take 1 Tablet (50 mg) by mouth at bedtime. 90 Tablet 3 04/25/20 24 Active levothyroxine (SYNTHROID) 150 mcg tabletIndications:Acqui red hypothyroidism Take 1 Tablet (150 mcg) by mouth before breakfast. 90 Tablet 1 07/31/20 24 Active ondansetron (ZOFRAN ODT) 4 mg disintegrating tabletIndications:Nause a Place 1 Tablet (4 mg) on the tongue every 8 hours if needed for Nausea/Vomit ing. 30 Tablet 1 08/29/20 24 Active citalopram (CELEXA) 40 mg tabletIndications:Episo de of recurrent major depressive disorder, unspecified depression episode severity Take 1 Tablet (40 mg) by mouth once daily. 90 Tablet 1 09/01/20 24 Active buprenorphine-naloxone, 2 mg-0.5 mg, (SUBOXONE) sublingual tablet Place 0.5 Tablets under the tongue. 11/17/19 25 Active oxyCODONE 10 mg tablet Take 10 mg by mouth 3 times daily if needed. 11/17/19 25 Active diazePAM (VALIUM) 5 mg tablet Take 10 mg by mouth. 09/11/20 24 Active warfarin (COUMADIN) 5 mg tabletIndications:Antip hospholipid antibody syndrome (HC),Ischemic embolic stroke (HC),Anticoagulation monitoring, INR range 2-3 Take by mouth 10 mg (5 mg x 2) every e, Suzanne; 7.5 mg (5 mg x 1.5) all other days in the evening OR as directed 150 Tablet 12/11/19 Active Active Problems Problem Noted Date Diagnosed Date Punctate keratitis of both eyes 07/14/2024 Dry eyes, bilateral 07/14/2024 PFO (patent foramen ovale) 10/08/2023 Anticoagulation monitoring, INR range 2-3 2021 Overview (04/25/2024): Cannot do POCT inr Antiphospholipid antibody syndrome 09/28/2022 Ischemic embolic stroke 03/29/2022 Pseudophakia 12/23/2020 Presbyopia 12/23/2020 Regular astigmatism, bilateral 12/23/2020 Hyperopia, bilateral 12/23/2020 Morbid obesity with BMI of 40.0-44.9, adult 06/30 CKD (chronic kidney disease) stage 3, GFR 30-59 ml/min 07/20/2017 Acquired hypothyroidism 10/18/2016 Cataract 06/16/2014 Colon polyp 02/25/2013 Overview (02/25/2013): Had colonoscopy 02/08, needs in again in 02/11 Pure hypercholesterolemia 02/26/2012 Insomnia 02/26/2012 Major depression, recurrent 02/26/2012 Overactive bladder 02/26/2012 Resolved Problems Problem Noted Date Diagnosed Date Resolved Date Chronic anticoagulation 09/28/202205/29 Warfarin anticoagulation 09/28/2022 Hypothyroid 06/18/2012 10/18/2016 Encounters Date Type Department Care Team Description 01/13/2025 Anticoagulation (warfarin) [facility] [address] [place] [address] Clinic, [place] [facility] Anticoagulation (Outside Lab ) 12/16/2024 Orders Only [facility] Scanner 1 scan: (1-Ord) [facility], PT/INR, 12/16/2024 12/16/2024 Anticoagulation (warfarin) [facility] [address] [place] [address] Clinic, [place] [facility] Anticoagulation (Outside lab) 12/16/2024 Telephone [facility] [address] [place] [address] Noemy Ko MD Lab (BMP) 12/11/2024 Telephone [facility] [address] [place] [address] Noemy Ko MD Anticoagulation (Outside lab order) 12/11/2024 Telephone [facility] [address] [place] [address] Noemy Ko MD Anticoagulation (Warfarin refill needed today) 12/10/2024 Telephone [facility] [address] [place] [address] Noemy Ko MD Anticoagulation 12/10/2024 Anticoagulation (warfarin) [facility] [address] [place] [address] [place] [facility] Antico[facility] (Outside lab) 12/06/2024 Telephone [facility] [address] [address] Noemy Ko MD Anticoagulation 11/21/2024 9:35 AM MORTGAGE PROCESSING CLERK Office Visit [facility] [address], [place] [address] Noemy Ko MD Concerns (Lower Abdominal Pain, Fatigue) 11/21/2024 Travel 10/31/2024 Telephone [facility] [address], [place] [address] Noemy Ko MD Referral 10/28/2024 1:10 PM MORTGAGE PROCESSING CLERK Telemedicine [facility] [address], [place] [address] Noemy Ko MD Follow Up 10/27/2024 Travel 10/24/2024 Anticoagulation (warfarin) [facility] [address] [address] [facility] from Last 3 Months Immunizations Immunization Administration Dates Next Due COVID-19 vaccine ([employer]-J[employer]J) RIDGE BHARDWAJ COVID-19 vaccine ([employer] NTech 30mcg/0.3mL) RIDGE BHARDWAJ 11/19/2021,04/07/2021 Hepatitis A (Adult) 01/14/2008 Influenza Virus, Unspecified 07/29/2019, 11/23/2010,10/04/2006,08/09 Influenza, High-dose Inactivated 019,07/11/2018,07/29/2015,07/03 Influenza, High-dose Quadriv alent Inactivated 08/29/2023,08/16/2022,08/06/2021 Influenza, IIV3 (Age >=3 years) 11/23/2010,10/04,08/09/2004 Influenza, IIV4 07/29/2016 Influenza, Inactivated AIIV4 (Age 65+ Years) Preserv Free 07/28/2020 Influenza, Inactivated IIV3 (Age 65+ Years) Preserv Free 07/11/2018,07/19/2017 Pneumococcal Poly,23-Valent (Pneumovax) 02/11/2014 Pneumococcal conj 13-Valent (Prevnar 13) 04/06/2016 RSV, Recombinant ADJ Reconst ituted (Arexvy 120MCG/0.5mL) 08/22/2023 Tdap 11/23/2021,12/07/2011 Zoster (Shingrix-RZV, recombinant) 08/29/2023, Zoster (Zostavax-ZVL, live) 01/04/2010 Family History Medical History Relation Name Comments Heart Disease Father 06/09 from resp failure,/CAGB x4 Cancer Mother Cancer-ovarian Mother Cancer-breast Other Maternal Cousi n Relation Name Status Comments Brother 1 Alive Brother 2 Alive Father Mother Other Social History Tobacco Use Types Packs/Day Years Used Date Smoking Tobacco: Former Smokeless Tobacco: Never Comments:1 or 2 a month Alcohol Use Standard Drinks/Week Comments Not Currently 0 (1 standard drink = 0.6 oz pur e alcohol) PHQ-2 Answer Date Recorded PHQ-2 TOTAL SCORE 0 04/25/2024 Social Connections Answer Date Recorded Do you often feel lonely or isolated from those around you? 0 03/18/2024 Financial Resource Strain Answer Date R ecorded Difficulty of Paying Living Expenses 1 02/25/2024 Difficulty of Paying Living Expenses 2 02/25/2024 Food Insecurity Answer Date Recorded Do you worry your food will run out before you are able to buy more? 1 03/18/2024 Transportation Needs Answer Date Record ed Does lack of transportation keep you from medica l appointments? 1 03/18/2024 Does lack of transportation keep you from work, meetings or getting things that you need? 1 03/18/2024 Housing Stability Answer Date Recorded What is your housing situation today? 1 03/18/2024 Utilities Answer Date Recorded Do you have trouble paying f or utilities (for example, heat, electricity, water, phone)? 1 03/18/2024 Comments No Sex and Gender Information Value Date Recorded Sex Assigned at Not on file Legal Sex Female 6:10 AM MORTGAGE PROCESSING CLERK Gender Identity Not on file Sexual Orientation Not on file Obstetrics History Last Filed Vital Signs Vital Sign Reading Time Taken Comments Blood Pressure 110/60 11/21/2024 9:31 AM MORTGAGE PROCESSING CLERK Pulse 74 11/21/2024 9:31 AM MORTGAGE PROCESSING CLERK Temperature 36.8 C (98.2 F) 02/25/2024 2:44 PM CDT Respiratory Rate 16 03/24/2022 5:12 PM CDT Oxygen Saturation 99% 02/25/2024 2:44 PM CDT Inhaled Oxygen Concentration - - Weight 103.1 kg (227 lb 3.2 oz) 11/21/2024 9:31 AM MORTGAGE PROCESSING CLERK Height 159.5 cm (5' 2.8) 04/25/2024 10 :54 AM CDT Body Mass Index 40.51 04/25/2024 10:54 AM CDT Plan of Treatment Upcoming Encounters Date Type Department Care Team (Late st Contact Info) Description 01/27/2025 2:30 PM CDT Office Visit [facility] [address] [id number] Bette Daly, [facility] [address] [phone] 04/27/2025 10:55 AM CDT Office Visit [facility] [address] [id number] Noemy Ko MD [address] [phone] Health Maintenance Due Date Last Done Comments Influenza Vaccine (#1) 2024 , 07/29/2019, 07/24/2019, Additional history exists COVID-19 vaccine series ( season) 2025 08/17/2024, 08/22/2023, 08/16/2022, Additional history exists BMI (ht and wt on same day) for age 18+ 04/25/2025 04/25/2024, 02/25/2024, 04/23/2023, Additional history exists Depression screening for age 12+ 04/25/2025 04/25/2024, 12/24/2023, 12/24/2023, Additional history exists Medicare Wellness for age 65+ 04/26/2025 04/25/2024, 04/23/2023, 02/22/2022, Additional history exists Colonoscopy through age 75 07/01/202607/01, 05/26/2016, 02/20/2013 Lipids for age 45-75 04/25/2029 04/25/2024, 04/23/2023, 02/22/2022, Additional history exists Tetanus booster 11/23/2031 11/23/2021, 12/07/2011 Pneumococcal series for age 50+ Completed 04/06/2016, 02/11/2014 Hepatitis C screening for age 18-79 Completed 07/19/2017 Tdap Completed 11/23/2021, 12/07/2011 DEXA/DXA scan for age 65+ Addressed 2022 (Verified in Care Everywhere or Patient Record) Overridden with the intention of not completing the topic RSV vaccine for adults or Completed 08/22/2023 Zoster (shingles) series for age 50+ Completed 08/29/2023, 05/14/2021, 01/04/2010 Medical Devices Implanted Type Area Fabrication Technician Device Identifier Shelf Expiration Date Model / Serial / Lot Lens Iol 17.0 Wf [id number]. 0 - [id number] Implanted:Qty: 1 on 06/14/2015 by Zackary Crews MD at [facility] Right: [employer] 02/26/2020 [id number]. 0# / [id number] / Lens Iol 16.5 Wf [id number]. 5 - [id number] Implanted:Qty: 1 on 06/28/2015 by Zackary Crews MD at [facility] Left: [employer] 03/28/2020 [id number]. [id number]# / [id number] / Procedures Procedure Name Priority Date/Time Associated Diagnosis Comments INR,POCT Routine 01/13/2025 SCAN-LABORATORY REPORT 12/16/2024 12:00 AM MORTGAGE PROCESSING CLERK INR,POCT Routine 12/16/2024 INR,POCT Routine 12/10/2024 BASIC METABOLIC PANEL Routine 11/21/2024 10:21 AM MORTGAGE PROCESSING CLERK Stage 3a chronic kidney disease (HC) HEMOGLOBIN Routine 11/21/2024 10:21 AM MORTGAGE PROCESSING CLERK Stage 3a chronic kidney disease (HC) TSH Routine 11/21/2024 10:21 AM MORTGAGE PROCESSING CLERK Acquired hypothyroidism INR,POCT Routine 10/24/2024 12:16 PM MORTGAGE PROCESSING CLERK LIPID PANEL W REFLEX MEASURED LDL Routine 04/25/2024 11:42 AM CDT Pure hypercholesterolemia SCAN-COLONOSCOPY 07/01/2021 11:0 0 AM CDT ANTI HCV Routine 07/19/2017 10:38 AM CDT Need for hepatitis C screening test from Last 3 Months or Most Recently Relevant to Health Maintenance Results * INR,POCT (01/13/2025) Only the most recent of4 resultswithin the time period is included. INR 1.6 [facility] Blood BLOOD SPECIMEN / Unknown 01/13/2025 us Patient Reported LABORATORY Final Result [address] [address] * SCAN-LABORATORY REPORT (12/16/2024 12:00 AM MORTGAGE PROCESSING CLERK) us Scanner OTHER Final Result * (ABNORMAL) TSH (11/21/2024 10:21 AM MORTGAGE PROCESSING CLERK) TSH 26.24(H) 0.40 - 4.50 mIU/L [facility] Blood BLOOD SPECIMEN / Unknown 11/21/2024 10:21 AM MORTGAGE PROCESSING CLERK 11/21/2024 10:22 AM MORTGAGE PROCESSING CLERK Noemy Ko MD CHEMISTRY F inal Result Performing Organization Address City/[facility]/ZIP Co de Phone Number [facility] [address] [place] [address], [place] [phone] [facility] [address] [place] [address] * HEMOGLOBIN (11/21/2024 10:21 AM MORTGAGE PROCESSING CLERK) [facility] HEMOGLOBIN 12.8 11.7 - 15.5 g/dL [facility] Blood BLOOD SPECIMEN / Unknown 11/21/2024 10:21 AM MORTGAGE PROCESSING CLERK 11/21/2024 10:22 AM MORTGAGE PROCESSING CLERK Noemy Ko MD HEMATOLOGY F inal Result Performing Organization Address [facility] Co de Phone Number [facility] [address] [address], [facility] [address] [place] [address] * (ABNORMAL) BASIC METABOLIC PANEL (11/21/2024 10:21 AM MORTGAGE PROCESSING CLERK) [facility] GLUCOSE 78 65 - 99 mg/dL [facility] Comment: Fasting reference interval UREA NITROGEN (BUN) 22 7 - 25 mg/dL [facility] CREATININE 1.23(H) 0.60 - 1.00 mg/dL [facility] EGFR 46(L) > OR = 60 mL/min/1.7 3m2 [facility] BUN/CREATININE RATIO 18 6 - 22 (calc) [facility] SODIUM 141 135 - 146 mmol/L [facility] POTASSIUM 5.0 3.5 - 5.3 mmol/L [facility] CHLORIDE 106 98 - 110 mmol/L [facility] CARBON DIOXIDE 28 20 - 32 mmol/L [facility] ELECTROLYTE BALANCE 7 7 - 17 mmol/L (calc) [facility] CALCIUM 9.1 8.6 - 10.4 mg/dL [facility] Blood BLOOD SPECIMEN / Unknown 11/21/2024 10:21 AM MORTGAGE PROCESSING CLERK 11/21/2024 10:22 AM MORTGAGE PROCESSING CLERK Noemy Ko MD CHEMISTRY F inal Result [facility] [address] [place] [address], [facility] [address] [place] [address] * LIPID PANEL W REFLEX MEASURED LDL (04/25/2024 11:42 AM CDT) CHOLESTEROL,TOTAL 169 100 - 199 mg/dL 04/25/2024 8:48 PM CDT [facility] Comment: Cholesterol, Total Reference Ranges Desirable <200 mg/dL Borderline 200-239 mg/dL High >=240 mg/dL TRIGLYCERIDES 128 <150 mg/dL 04/25/2024 8:48 PM CDT [facility] HDL CHOLESTEROL 52 >40 mg/dL 8:48 PM CDT [facility] NON-HDL CHOLESTEROL 117 <145 mg/dl 04/25/2024 8:48 PM CDT [facility] CHOL/HDL RATIO 3.25 <4.50 04/25/2024 8:48 PM CDT [facility] LDL CHOLESTEROL 91 <=130 mg/dL 04/25/2024 8:48 PM CDT [facility] VLDL CHOLESTEROL 26 <=30 mg/dL 04/25/2024 8:48 PM CDT [facility] PROVIDER ORDERED STATUS RANDOM 04/25/2024 8:48 PM CDT [facility] Blood BLOOD SPECIMEN / Unknown Venipuncture / Unknown 04/25/2024 11:42 AM CDT 04/25/2024 11:43 AM CDT us Noemy Ko MD CHEMISTRY F inal Result [facility] [address] [place] [address], [place] * SCAN-COLONOSCOPY (07/01/2021 11:00 AM CDT) Narrative Procedure Note Leora Spears MD - 07/01/2021 10:06 AM CDT [facility] [address], [address], [place] [address] Patient Name: Margie Younger Gender: Female Exam Date: 07/01/2021 Visit Number: [id number] Age: 71 Years 5 Months Date of : 1950 Attending MD: Leora Spears MD Medical Record#: [id number] ----- Procedure: Colonoscopy Indications: Previous advanced adenomatous polyp(s) Referring MD: Noemy Eagle MD Primary MD: Noemy Eagle MD Medications: Admitting Medications: 0.9% Normal Saline at TKO Intra Procedure Medications: Patient received monitored anesthesia care. Complications: No immediate complications Procedure: An examination of the heart and lungs was performed and found to be withinacceptable limits. The patient was therefore deemed a reasonablecandidate for endoscopy and monitored anesthesia care. The risks and benefits of the procedure were explained to the patient.After obtaining informed consent, the patient received monitoredanesthesia care and I passed the scope without difficulty via the rectum to the cecum. The appendiceal orificeand ic valve were identified. The scope was retroflexed during theexamination The quality of the prep was excellent (Miralax/Gatorade/2tablets Bisacodyl/Magnesium Citrate). This was a complete examination throughout the entire colon. Findings: Diverticulosis. Location: - sigmoid. Description: mild. Size:small. Quantity: several. No inflammation present. Anal canal: internal hemorrhoid(s) Remainder of the exam is normal. Impression: Personal history of colonic polyps Diverticulosis of colon without diverticulitis Plan Repeat colonoscopy in 5 years for polyp surveillance. We will attempt to contact you at appropriate intervals via U.S. mail. Wemay not be able to find you or contact you at that time, therefore youshould know that the responsibility for following our recommendation restswith you. If you don't hear from us at the time your procedure is due,please contact our office to schedule an appointment. If your contactinformation should change, please contact our office so that we can updateyour records. The [place] Preventive Services Task Force recommends againstroutine screening for colorectal cancer in adults age 76 to 85 years.There may be considerations that support colorectal cancer screening in anindividual patient. Future colonoscopy recall should be based on overall clinical condition. Electronically signed by: Leora Spears MD 07/01/2021 Medications: Medication Dose Sig Description PRN Status PRN Reason Comments citalopram 40 mg tablet 40 mg take 1 tablet by oral route every day Ntaking as directed levothyroxine 137 mcg tablet 137 mcg take 1 tablet by oral route everyday N taking as directed simvastatin 40 mg tablet 40 mg take 1 tablet by oral route every day inthe evening N taking as directed trazodone 50 mg tablet 50 mg take 1 tablet by ORAL route every day aftermeals N taking as directed Allergies: Medication Name Ingredient Reaction Comment NO KNOWN ALLERGIES Vital Signs: Date Time Systolic Diastolic Height Weight BMI 07/01/2021 1027 AM 128 76 63 in 233.80 41.40 Race: White Ethnicity: Not or Preferred Language: Chilean cc: Noemy Eagle MD cc: Noemy Eagle MD [facility] [phone] us Leora Spears MD OTHER Final R esult * ANTI HCV [13858.2] (07/19/2017 10:38 AM CDT) HEPATITIS C ANTIBODY Non-Reacti ve Non-Reacti ve 07/19/2017 6:28 PM CDT [facility] Blood BLOOD SPECIMEN / Unknown Venipuncture / Unknown 07/19/2017 10:38 AM CDT 07/19/2017 10:38 AM CDT Narrative [facility] - 07/19/2017 6:28 PM CDT Antibodies to HCV not detected; does not exclude the possibility of exposure to HCV. us Noemy Ko MD SEND OUTS F inal Result [facility] [address] [place] [address], from Last 3 Months or Most Recently Relevant to Health Maintenance Insurance MEDICARE PART B HB ONLY [place] BL[place] ONLY MEDICARE PART A HB ONLY [place] [address] [facility] MEDICARE PB ONLY Advance Directives Documents on File Type Date Recorded Patient Beck Tender Expl anation Healthcare Directive 12/24/2020 1:40 PM He alth Care Directive * Full Code (Latest Code Status on File) Date Activated Date Inactivated Comments 06/28/2015 8:58 AM 06/28/2015 1:06 PM * Full Code Date Activated Date Inactivated Comments 06/14/2015 9:38 AM 06/14/2015 1:54 PM * Full Code Date Activated Date Inactivated Comments 06/14/2015 7:21 AM 06/14/2015 9:38 AM Care Teams Bilingual Loan Processor Relationship Specialty Start Date End Date Noemy Ko MD [address] [place] [address] PCP - General Family Practice 06/26/12 Zackary Crews MD [address] [place] [address] Ophthalmology Ophthalmology Surgery 06/09/15 Abad Kwan MD [address] [place] [address] Orthopedics Surgery - Orthopedics 06/09/15
--- OUTSIDE RECORDS SUMMARY | 2025-01-14 06:16 | XMS_ITS | Clinical Summary ---
Author Organization [facility] Address [address] [place] [address] Care Team Providers Care Performing Artist Name Role Phone Noemy Gomez Primary Care Provid er Woo Agustin MD Unavailable Allergies Active Allergy Reactions Criticality Noted Date Comments No Known Drug Allergy 11/06/2002 Medications traZODone (DESYREL) 50 MG tablet Take 50 mg by mouth at bedtime Active atorvastatin (LIPITOR) 40 MG tablet Take 40 mg by mouth at bedtime 3 Active citalopram (CELEXA) 40 MG tablet Take 40 mg by mouth at bedtime Active acetaminophen (TYLENOL) 325 MG tabletIndications :Lumbar radiculopathy Take 2 tablets (650 mg) by mouth every 4 hours as needed for other (For optimal non-opioid multimodal pain management to improve pain control.) 60 tablet 2 4 Active levothyroxine (SYNTHROID/LEVOTH ROID) 137 MCG tabletIndications :Hypothyroidism, unspecified type Take 1 tablet (137 mcg) by mouth daily 4 Active senna-docusate (SENOKOT-S/RYLAND LACE) 8.6-50 MG tabletIndications :Lumbar radiculopathy Take 2 tablets by mouth 2 times daily 4 Active warfarin ANTICOAGULANT (COUMADIN) 5 MG tabletIndications :Cerebrovascular Accident Take 5 mg by mouth daily Coumadin 5 mg , Sunday and 7.5 mg on Sunday. Next INR 6/3 to be drawn by home lighting adviser and results to PCP. Active artificial tears SOLN Place into both eyes 4 times daily as needed (for irritation) 4 Active ketotifen fumarate 0.035% 0.035 % SOLN ophthalmic solution Place 1 drop into both eyes 2 times daily as needed for itching 4 Active diclofenac (VOLTAREN) 1 % topical gel Apply 4 g topically 2 times daily as needed for moderate pain 4 Active methocarbamol (ROBAXIN) 500 MG tablet Take 1 tablet (500 mg) by mouth every 6 hours as needed for muscle spasms 4 Active polyethylene glycol (MIRALAX) 17 GM/Dose powder Take 17 g by mouth 2 times daily 4 Active HYDROmorphone (DILAUDID) 2 MG tablet Take 1-2 tablets (2-4 mg) by mouth every 4 hours as needed for moderate pain or severe pain 20 tablet 4 Active naloxone (NARCAN) 4 MG/0.1ML nasal spray Winston 1 spray (4 mg) into one nostril alternating nostrils as needed for opioid reversal every 2-3 minutes until assistance arrives 4 Active Active Problems Problem Noted Date Diagnosed Date Lumbar radiculopathy 03/05/2024 Insomnia 12/07/2011 Urinary, incontinence, stress female 12/07/2011 Colon polyps 12/20/2010 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 Provider to review Obesity 11/06/2002 Overview (07/29/2015): Problem list name updated by automated process. 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 Provider to review Resolved Problems Problem Noted Date Diagnosed Date Resolved Date Primary localized osteoarthrosis, lower leg 11/11/2007 12/09/2007 Immunizations Name Administration Dates Next Due Influenza (IIV3) PF 11/23/2010 TDAP Vaccine (Adacel) 12/07/2011 Family History Medical History Relation Comments Cardiovascular Father Cancer Mother mom of ovar jac cancer Relation Status Comments Father Alive Mother Social History Tobacco Use Types Packs/Day Years Used Date Smoking Tobacco: Former Cigarettes Smokeless Tobacco: Never Tobacco Cessation:Counseling Given: Not Answered Comments:1-2 cigs per day, then many days without, depends on stress, since college Alcohol Use Standard Drinks/Week Comments Yes 0 (1 standard drink = 0.6 oz pur e alcohol) Rare ice cold beer Adolescent Education Answer Date Record ed Getting School Help Needed Not on file 08/05 Comments No Sex and Gender Information Value Date Recorded Sex Assigned at Not on file 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 Gender Identity Not on file Sexual Orientation Not on file Last Filed Vital Signs Vital Sign Reading Time Taken Comments Blood Pressure 128/72 03/26/2024 11:42 AM CDT Pulse 67 03/26/2024 11:42 AM CDT Temperature 36.6 C (97.9 F) 03/26/2024 11:42 AM CDT Respiratory Rate 18 03/26/2024 11:42 AM CDT Oxygen Saturation 96% 03/26/2024 11:42 AM CDT Inhaled Oxygen Concentration - - Weight 110.7 kg (244 lb) 03/26/2024 11:42 AM CDT Height 160 cm (5' 3) 03/26/2024 11:42 AM CDT Body Mass Index 43.22 03/26/2024 11:42 AM CDT Plan of Treatment Health Maintenance Due Date Last Done Comments ADVANCE CARE PLANNING 1950 ANNUAL REVIEW OF HM ORDERS 1949 CT COLONOGRAPHY 1950 FIT 1950 FLEX SIG 1950 sDNA (Cologuard) 1950 PHQ-9 06/06/2012 12/07/2011, 12/07/2011 LIPID 01/14/2013 01/15/2012, 10/30, 12/20/2010 FALL RISK ASSESSMENT 2014 LUNG CANCER SCREENING 01/26/2022 01/26/2021 , 11/20/2010, 04/08/2009 RSV VACCINE (1 - 1-dose 75+ series) 01/24/2024 MEDICARE ANNUAL WELLNESS VISIT 04/23/2024 04/23/2023, 02/22/2022, 12/23/2020, Additional history exists COVID-19 Vaccine ( season) 2024 08/22/2023, 08/16/2022, 05/27/2022, Additional history exists INFLUENZA VACCINE (#1) 2024 , 08/16/2022, 08/06/2021, Additional history exists TSH W/FREE T4 REFLEX 03/13/2025 03/13/2024, 01/15/2012, 01/15/2012, Additional history exists GLUCOSE 03/13/2027 03/13/2024, 02/26, 03/06/2024, Additional history exists COLONOSCOPY 07/01/2031 07/01/2021, 06/04/2003 COLORECTAL CANCER SCREENING 07/01/2031 DTAP/TDAP/TD IMMUNIZATION (3 - Td or Tdap) 11/23/2031 11/23/2021, 12/07/2011 DEXA 12/12/2037 12/12/2022 DEPRESSION ACTION PLAN Completed 12/07/2011 Pneumococcal Vaccine: 50+ Years Completed 04/06/2016, 02/11/2014 HEPATITIS C SCREENING Completed 07/19/2017 MAMMO SCREENING Discontinued 12/12/2022, 11/29, 10/14/2019, Additional history exists ZOSTER IMMUNIZATION Completed 08/29/2023, 05/14/2021, 01/04/2010 HPV IMMUNIZATION Aged Out No longer e ligible based on patient's age to complete this topic MENINGITIS IMMUNIZATION Aged Out No l onger eligible based on patient's age to complete this topic Medical Devices Implanted Type Area Caregivers Non Medical Device Identifier Shelf Expiration Date Model / Serial / Lot Kit Bngf 6cc Dmnr Siddhartha Fbr Accelerate Grftn [employer] [facility] [id number] - [id number] Implanted:Qty: 1 on 03/05/2024 by Hay Cespedes MD at [facility] Bone/Tissu e/Biologic N/A: Spine Lumbar [employer] 07/29/2025 [id number] / [id number] / NA Graft Bn Magnifuse Dbm 5x1.75cm - [id number] Implanted:Qty: 1 on 03/05/2024 by Hay Cespedes MD at [facility] Bone/Tissu e/Biologic N/A: Spine Lumbar [employer] 11/12/2025 [id number] / [id number] / NA Ossdsign [employer]yst Nanosynthetic Bone Graft Putty Implanted:Qty: 1 on 03/05/2024 by Hay Cespedes MD at [facility] Graft N/A: Spine Lumbar [employer] 10/25/2025 [id number] / / [id number] Mas Head Implanted:Qty: 1 on 03/05/2024 by Hay Cespedes MD at [facility] Metallic Hardware/A nchor N/A: Spine Lumbar [employer] 02/01/2028 [id number] / / [id number] Gary Medt Solera Cvd 5.5x60mm Chr [id number] - [id number] Implanted:Qty: 2 on 03/05/2024 by Hay Cespedes MD at [facility] Metallic Hardware/A nchor N/A: Spine Lumbar [employer] 11/28/2025 [id number] / / NA Cd Horizon Modulex Spinal System Titan Nanolock Shank, Osteogrip Threadform Implanted:Qty: 1 on 03/05/2024 by Hay Cespedes MD at [facility] Metallic Hardware/A nchor N/A: Spine Lumbar [employer] [id number] 04/26/2031 [id number] / / [id number] Cd Horizon Modulex Spinal System Titan Nanolock Shank, Osteogrip Threadform Implanted:Qty: 1 on 03/05/2024 by Hay Cespedes MD at [facility] Metallic Hardware/A nchor N/A: Spine Lumbar [employer] [id number] 06/20/2031 [id number] / / [id number] Cd Horizon Modulex Spinal System Titan Nanolock Shank, Osteogrip Threadform Implanted:Qty: 1 on 03/05/2024 by Hay Cespedes MD at [facility] Metallic Hardware/A nchor N/A: Spine Lumbar [employer] [id number] 03/01/2031 [id number] / / [id number] Titan Nanolock Shank Osteogrip Threadform Implanted:Qty: 1 on 03/05/2024 by Hay Cespedes MD at [facility] Metallic Hardware/A nchor N/A: Spine Lumbar [employer] 06/20/2031 [id number] / / [id number] Titan Nanolock Shank Osteogrip Threadform Implanted:Qty: 1 on 03/05/2024 by Hay Cespedes MD at [facility] Metallic Hardware/A nchor N/A: Spine Lumbar [employer] 05/11/2031 [id number] / / [id number] Titan Nanolock Shank Osteogrip Threadform Implanted:Qty: 1 on 03/05/2024 by Hay Cespedes MD at [facility] Metallic Hardware/A nchor N/A: Spine Lumbar [employer] 04/26/2031 [id number] / / [id number] Mas Head Implanted:Qty: 1 on 03/05/2024 by Hay Cespedes MD at [facility] Metallic Hardware/A nchor N/A: Spine Lumbar [employer] 12/30/2028 [id number] / / [id number] Graft Bone Ossdsign Catalyst Nanosynthetic 10cc Putty [id number] - [id number] Implanted:Qty: 1 on 03/05/2024 by Hay Cespedes MD at [facility] N/A: Spine Lumbar [employer] 10/25/2025 [id number] / / [id number] Procedures Procedure Name Priority Date/Time Associated Diagnosis Comments BASIC METABOLIC PANEL Routine 03/13/2024 6:10 AM CDT Anemia, unspecified Chronic kidney disease, unspecified Hypothyroidism, unspecified TSH Routine 03/13/2024 6:10 AM CDT Anemia, unspecified Chronic kidney disease, unspecified Hypothyroidism, unspecified MAMMOGRAM - HIM SCAN Routine 10/14/2019 LIPID REFLEX TO DIRECT LDL PANEL Routine 01/15/2012 9:15 AM CDT Hyperlipidemia LDL goal <130 CT CHEST PULMONARY EMBOLISM W CONTRAST Routine 11/20/2010 3:24 PM ROLL MECHANIC [facility] COLONOSCOPY THRU STOMA, DIAGNOSTIC Routine 06/04/2003 COLON REPT;RECTUM SURG PATH REPT from Last 3 Months or Most Recently Relevant to Health Maintenance Results * TSH (03/13/2024 6:10 AM CDT) TSH 0.44 0.30 - 4.20 uIU/mL 03/13/2024 7:55 AM CDT [facility] Blood STRUCTURE OF LEFT UPPER LIMB / Unknown Venipuncture / Unknown 03/13/2024 6:10 AM CDT 03/13/2024 7:18 AM CDT us Mikaela Gracia APRN [facility] - BLOOD ORDERABLE S Final Result LABORATORY [facility] [address] Lab (1st floor, no room number) [place] [address], [facility] * (ABNORMAL) Basic metabolic panel (03/13/2024 6:10 AM CDT) Sodium 138 135 - 145 mmol/L 03/13/2024 7:55 AM CDT [facility] Comment:Reference intervals for this test were updated on 07/24/2023 to more accurately reflect our healthy population. There may be differences in the flagging of prior results with similar values performed with this method. Interpretation of those prior results can be made in the context of the updated reference intervals. Potassium 4.0 3.4 - 5.3 mmol/L 03/13/2024 7:55 AM CDT LABORATORY Chloride 105 98 - 107 mmol/L 03/13/2024 7:55 AM CDT LABORATORY Carbon Dioxide (CO2) 24 22 - 29 mmol/L 03/13/2024 7:55 AM CDT LABORATORY Anion Gap 9 7 - 15 mmol/L 03/13/2024 7:55 AM CDT LABORATORY Urea Nitrogen 9.6 8.0 - 23.0 mg/dL 03/13/2024 7:55 AM CDT LABORATORY Creatinine 0.82 0.51 - 0.95 mg/dL 03/13/2024 7:55 AM CDT LABORATORY GFR Estimate 74 >60 mL/min/1. 73m2 03/13/2024 7:55 AM CDT LABORATORY Calcium 8.4(L) 8.8 - 10.2 mg/dL 03/13/2024 7:55 AM CDT LABORATORY Glucose 79 70 - 99 mg/dL 03/13/2024 7:55 AM CDT LABORATORY Blood STRUCTURE OF LEFT UPPER LIMB / Unknown Venipuncture / Unknown 03/13/2024 6:10 AM CDT 03/13/2024 7:18 AM CDT us Mikaela Gracia APRN [facility] - BLOOD ORDERABLE S Final Result LABORATORY [facility] [address] Lab (1st floor, no room number) [place] [address] * Mammogram - HIM Scan (10/14/2019) Anatomical Region Laterality Modality Other Narrative 10/14/2019 Result Impression There is no radiographic evidence for malignancy. Recommend annual mammograms. A lay language report of this examination will be provided to the patient. MAMMOGRAM ASSESSMENT: ACR 1 Negative Other Result Information Result Narrative XR MAMMO BILAT SCREENING [[id number]] CLINICAL HISTORY: This is an asymptomatic 69 y.o. patient. INDICATION FOR EXAM: Mammogram Screening. TECHNIQUE: CC & MLO views were obtained. This digital study was evaluated with the assistance of Computer-Aided Detection. COMPARISON FILM: Yes 10/09/18 [facility] 02/11/14 [facility] FINDINGS: Mammographically, the breast tissue has scattered fibroglandular densities. There are no dominant masses, suspicious micro calcifications or areas of architectural distortion. Provider Outside IMG MAMMOGRAPHY ORDERABLES Palma l Result * (ABNORMAL) Lipid panel reflex to direct LDL (01/15/2012 9:15 AM CDT) Cholesterol 156 0 - 200 mg/dL [facility] Comment: LDL Cholesterol is the primary guide to therapy. The NCEP recommends further evaluation of: patients with cholesterol greater than 200 mg/dL if additional risk factors are present, cholesterol greater than 240 mg/dL, triglycerides greater than 150 mg/dL, or HDL less than 40 mg/dL. Triglycerides 109 0 - 150 mg/dL [facility] HDL Cholesterol 41(L) 50 - 110 mg/dL [facility] LDL Cholesterol Calculated 92 0 - 129 mg/dL [facility] Comment: LDL Cholesterol is the primary guide to therapy: LDL-cholesterol goal in high risk patients is <100 mg/dL and in very high risk patients is <70 mg/dL. VLDL-Cholesterol 22 0 - 30 mg/dL [facility] Cholesterol/HDL Ratio 3.8 0.0 - 5.0 [facility] Blood specimen (specimen) 01/15/2012 9:15 AM CDT 01/15/2012 9:17 AM CDT Chichi Esposito MD LAB - BLOOD ORDERABLE S Final Result Performing Organization Address City/State/[facility] Co de Phone Number [facility] [address] [place] [address] * CT Chest pulmonary embolism w contrast (11/20/2010 3:24 PM ROLL MECHANIC) Anatomical Region Laterality Modality Chest, SUBRAD CT BODY, UMP CT CHEST Computed Tomography 11/20/2010 3:24 PM ROLL MECHANIC Impressions 11/20/2010 3:58 PM ROLL MECHANIC Examination: CT PE CHEST W CONTRAST Nov 20, 2010 3:24:00 PM Comparison: 04/08/2009 History: head injury, head trauma and syncope, TECHNIQUE: Volumetric helical acquisition of CT images of the chest from the lung apices to the kidneys were acquired after the administration of IV contrast. FINDINGS: There is no pulmonary embolism. The heart and vasculature are normal. There is no pleural or pericardial effusion. There is no pneumothorax. Dependent atelectasis in the posterior lungs. Adrenal glands are normal. There surgical changes a laparoscopic band surgery. Surgical changes from cholecystectomy. IMPRESSION: 1. No pulmonary embolus or acute pulmonary process identified. Mild dependent atelectasis. 2. Postsurgical changes a laparoscopic gastric banding. I have personally reviewed the image and initial interpretation and agree with the findings. us Bernabe Lynn MD IMG CT ORDERABLES Edited * COLONOSCOPY (06/04/2003) us Hakan Escudero MD PROCEDURES Final Result from Last 3 Months or Most Recently Relevant to Health Maintenance Insurance [facility]1983 MEDICARE BCBS [place] [employer] Advance Directives For more information, please contact: [phone] * Full Code (Latest Code Status on File) Date Activated Date Inactivated Comments 03/05/2024 1:18 PM 03/10/2024 3:28 PM All basic and advanced life-sustaining interventions are performed as appropriate Question Answer Comments Code status determined by: Discussion with eveline nt/ legal decision maker Care Teams Performing Artist Relationship Specialty Start Date End Date Noemy Gomez PCP - General 06/17/13 Woo Agustin MD [address] [id number] Neurology 01/17/24
[2025-01-14 06:22] LABS: Lactate Sepsis w/Reflex* 1.1 mmol/L (0.5-1.9)
[2025-01-14 06:29] LABS: Troponin, Point-of-Care* 0.01 ng/ml (0.01-0.04)
[2025-01-14 06:50] VITALS: BP 118/74; PULSE 79; RESP 18; TEMP 36.9; O2SAT 96
[2025-01-14] MEDS: ONDANSETRON ODT 4 MG TAB PO (07:30)
== END 2025-01-14 07:58 | disposition home or self-care (01) ==
PROVIDERS: Emergency Provider Family Medicine
DX: R11.0 Nausea (principal)
CPT/HCPCS: 36415; 80053; 81003; 83605; 83690; 84484; 85025; 85610; 86140; 87631; 93005; 94761; 96374; 99284; A9270; J2405; J7030